=== PATIENT | male | born 1945 | race Hispanic/Latino ===

== ENCOUNTER 2017-07-16 09:03 | Inpatient (IN) | payer MEDICARE ==
[2017-07-16] MEDS ORDERED: Morphine 4 MG/ML VIAL ONE (09:44)
[2017-07-16] MEDS ORDERED: Ondansetron HCl/PF 4 MG/2 ML Vial ONE ×2 (09:44→10:40)
[2017-07-16] MEDS ORDERED: Pantoprazole 40 MG VIAL ONE (09:44)
[2017-07-16 10:07] LABS: Lactic Acid - Sepsis 3.4 mmol/L (0.5-2.2)
[2017-07-16 10:17] LABS: Troponin I 0.052 ng/mL (< 0.028)
[2017-07-16 10:18] LABS: #Basophils 0.1 thou/uL (0.0-0.2); #Monocytes 0.4 thou/uL (0.11-0.59); #Neutrophils 14.8 thou/uL (1.40-6.50); %Basophils 0.5 % (0.0-1.0); %Eosinophils 0.1 % (0.0-10.0); %Lymphocytes 6.1 % (21.0-51.0); %Monocytes 2.3 % (0.0-10.0); Hematocrit 60.4 % (42.0-52.0); Mean Platelet Volume 8.6 fL (7.4-10.4); Red Blood Cell (RBC) Count 7.27 mill/uL (4.70-6.10); White Blood Cell (WBC) Count 16.3 thou/uL (4.8-10.8)
[2017-07-16] MEDS ORDERED: Promethazine HCl 25 MG/ML VIAL ONE (11:29)
[2017-07-16 12:05] LABS: ALT (SGPT) 18 U/L (8-55); AST (SGOT) 18 U/L (5-34); Alkaline Phosphatase 147 U/L (40-150); Anion Gap 28 mmol/L (10-20); BUN (Urea Nitrogen) 25 mg/dL (8.4-25.7); Bilirubin, Total 1.1 mg/dL (0.2-1.2); Calc. Creatinine Clearance 0 mL/min (70-130); Calcium 10.4 mg/dL (7.8-10.44); Carbon Dioxide 19 mmol/L (23-31); Chloride 95 mmol/L (98-107); Estimated GFR-MDRD 58; Globulin 3.7 g/dL (2.4-3.5)
[2017-07-16] MEDS ORDERED: Insulin Regular 300 UNITS/3 ML VIAL ONE (12:59)
[2017-07-16] MEDS ORDERED: Meropenem 1 GM in Sodium Chloride 0.9% 100 ML IVPB SCH (13:15)
--- NOTE | 2017-07-16 13:53 | CT ---
CT ABDOMEN AND PELVIS WITH IV CONTRAST: Date: 07/16/17 HISTORY: Upper abdominal pain and coffeeground emesis. COMPARISON: None available. FINDINGS: There is partial visualization of cardiac pacemaking leads. Contrast seen in the distal esophagus which may be related to gastroesophageal reflux. Calcified granulomata are seen in the right infrahilar region with a tiny punctate pleural based calc ification at the right lung base with linear scarring versus atelectasis also present at the right onofre ng base. There are scattered subcentimeter, too small to characterize, hypodense lesions seen in the left kidn ey, with areas of what appear to be cortical scarring involving the left kidney. The right kidney has a normal CT appearance. The liver, spleen, pancreas, bilateral adrenal glands, urinary bladder, and opacified bowel demonstra te a normal CT appearance. The appendix is normal in caliber and filled with gas and contrast. Bilateral pars defects are seen at L5 with Grade II anterolisthesis of L5 on S1. There are degenerati ve changes seen in the lumbar spine. IMPRESSION: 1. No acute findings are seen in the abdomen or pelvis. 2. Dense atherosclerotic vascular calcifications. 3. Small amount of contrast in the distal esophagus suggesting gastroesophageal reflux. 4. Grade II spondylolisthesis lumbosacral junction. POS: [facility]
[2017-07-16 14:26] LABS: Bacteria/HPF None Seen HPF (None Seen); Hyaline Casts/LPF 0-3 HYALINE CAST LPF (0-3 Hyaline); Squamous Epithelial None Seen HPF (0-3); WBC/HPF 0-3 HPF (0-3)
[2017-07-16 14:27] LABS: Bilirubin Negative (Negative); Blood, Urine Small (Negative); Glucose, Urine (Dipstick) 500 mg/dL (Negative); Ketone, Urine 15 mg/dL (Negative); Nitrite Negative (Negative); Protein, Urine (Dipstick) 100 mg/dL (Neg-Trace); Urobilinogen 0.2 mg/dL (0.2-1.0)
[2017-07-16 14:53] LABS: Troponin I 0.072 ng/mL (< 0.028)
[2017-07-16] MEDS ORDERED: Ondansetron ODT 4 MG TAB SL PRN (15:31)
[2017-07-16] MEDS ORDERED: Ondansetron HCl/PF 4 MG/2 ML Vial IVP PRN (15:31)
[2017-07-16] MEDS ORDERED: Acetaminophen 325 MG TAB PO PRN ×2 (15:31→17:44)
[2017-07-16 15:48] VITALS: BMI 22.0
[2017-07-16] MEDS ORDERED: ISOVUE-370 76%-LOCM 1 ML ONE (16:46)
[2017-07-16] MEDS ORDERED: Iopamidol 370 76% 50 ML VIAL FS ONE (16:46)
[2017-07-16] MEDS ORDERED: Dextrose 5% in Water 1,000 ML IV PRN (16:47)
[2017-07-16] MEDS ORDERED: Dextrose 5 %-0.45 % NaCl 1,000 ML IV PRN (16:47)
[2017-07-16] MEDS ORDERED: Sodium Chloride 0.9% 1,000 ML IV PRN ×4 (16:47)
[2017-07-16] MEDS ORDERED: NS 0.9% w/ 20 MEQ KCL 1,000 ML/1,000 ML BAG IV PRN ×2 (16:47)
[2017-07-16] MEDS ORDERED: Potassium Chloride 40 MEQ in Sodium Chloride 0.9% 250 ML 250 ML IVPB PRN (16:48)
[2017-07-16] MEDS ORDERED: Potassium Phosphate 15 MMOL in Sodium Chloride 0.9% 250 ML 250 ML IV PRN (16:48)
[2017-07-16] MEDS ORDERED: Magnesium Oxide 400 MG TAB PO PRN ×2 (16:48)
[2017-07-16] MEDS ORDERED: Potassium Phosphate 12 MMOL in Sodium Chloride 0.9% 250 ML 250 ML IV PRN (16:48)
[2017-07-16] MEDS ORDERED: Potassium Phosphate 9 MMOL in Sodium Chloride 0.9% 100 ML IVPB PRN (16:48)
[2017-07-16] MEDS ORDERED: Magnesium 2 GM/NS 0.9% 100 ML 2 GM in Premix Bag 1 BAG IVPB PRN (16:48)
[2017-07-16] MEDS ORDERED: Potassium Chloride 20 MEQ TAB PO PRN (16:48)
[2017-07-16] MEDS ORDERED: Potassium Chloride 40 MEQ in Premix Bag 1 BAG IVPB PRN (16:48)
[2017-07-16 17:40] LABS: Magnesium 1.8 mg/dL (1.6-2.6); Phosphorus 3.8 mg/dL (2.3-4.7)
[2017-07-16 17:41] LABS: Anion Gap 17 mmol/L (10-20); BUN (Urea Nitrogen) 23 mg/dL (8.4-25.7); Calc. Creatinine Clearance 54 mL/min (70-130); Carbon Dioxide 25 mmol/L (23-31); Chloride 101 mmol/L (98-107); Estimated GFR-MDRD 73
--- NOTE | 2017-07-16 17:42 | CON ---
DATE OF CONSULTATION: 07/16/2017 GI INPATIENT CONSULTATION NOTE REASON FOR CONSULTATION: Possible hematemesis. HISTORY OF PRESENT ILLNESS: Jama Sahu is a 71-year-old man who speaks Urdu only, but I am as sisted by his family who acts as interpreters tonight. He was just admitted to the hospital with lisandra betic ketoacidosis and concern for possible hematemesis. He does not have any chronic gastrointestin al symptoms. It is unclear, but he believes he has had an upper endoscopy in the past before, but I cannot find a record of that in the [place] system or in my practice's system. At any rate, start ing about 11:00 p.m. last night, he started having abdominal pain in the epigastrium and left upper q uadrant. This progressed to nausea and multiple episodes of vomiting. They described his emesis as dark brown or black. There has been no lauren hematemesis. He had several episodes prior to arrival and after arrival notably this was witnessed in the ER and did appear to have coffee ground appearanc e. He had a bowel movement witnessed in the ER as well, and this appeared normal in brown with actua lly heme negative. Labs are consistent with dehydration and diabetic ketoacidosis with hemoglobin ac tually 18.9 likely reflecting hemoconcentration and an anion gap of 28. He is being started on a DKA protocol as well as IV PPI. He has had no further emesis since arrival to the floor. His abdominal pain has improved somewhat since arrival as well. PAST MEDICAL HISTORY: Diabetes, unspecified arrhythmia, status post pacemaker placement. REVIEW OF SYSTEMS: Full review of systems including constitutional, head, eyes, ears, nose, throat, GI, , cardiovascular, respiratory, musculoskeletal, and neurologic systems is negative except as no avni in the HPI. ALLERGIES: No known drug allergies. OUTPATIENT MEDICATIONS: Famotidine 20 mg daily, tramadol, lisinopril, metformin, Coreg, gabapentin. FAMILY HISTORY: Negative for GI malignancies. SOCIAL HISTORY: No smoking, alcohol, or drug use. He has good family support here. PHYSICAL EXAMINATION: VITAL SIGNS: Temperature 98.8, pulse 84, blood pressure 175/76, 100% oxygen saturation on room air. GENERAL: A 71-year-old man lying in bed comfortably in no acute distress. SKIN: No jaundice, no rashes were palpable. EYES: No scleral icterus. Extraocular movements intact. ENT: Mucous membranes moist, no oral lesions. LYMPH: No submandibular, supraclavicular lymphadenopathy. THYROID: Nontender to palpation. HEART: Regular rate and rhythm. LUNGS: Clear to auscultation bilaterally. ABDOMEN: Bowel sounds present. Soft, mild tenderness to palpation in the left upper quadrant, but n o guarding or rebound tenderness. EXTREMITIES: No peripheral edema. VESSELS: Radial pulses 2+ bilaterally. NEUROLOGICAL: Cranial nerves II-XII intact bilaterally. No focal deficits. LABORATORY STUDIES: WBC 16.3, hemoglobin 18.9, platelets 508. Sodium 138, potassium 3.9, chloride 9 5, bicarbonate 19 with CO2 and anion gap of 28, BUN is 25, creatinine 1.23, glucose 556, troponin 0.0 7. Lipase is only 13. LFTs normal with total bilirubin 1.1, alkaline phosphatase 147, AST 18, ALT 1 8, albumin 4.3. IMAGING STUDIES: A CT of the abdomen and pelvis was performed in the emergency department earlier to day. This demonstrates no acute findings. The liver, spleen, pancreas, and bowel all appeared chari l. There are dense atherosclerotic vascular calcifications and suggestion of esophageal reflux. ASSESSMENT AND PLAN: 1. Possible coffee ground emesis. 2. Left upper quadrant abdominal pain, improving. 3. Diabetic ketoacidosis. I think, it is likely the patient's symptoms are primarily attributable t o his diabetic ketoacidosis. I wonder if he might have had a Fransisca-Gillis tear at any rate, he is h emodynamically stable. Hemoglobin 18.9 expect this reflects some hemoconcentration, so I would expec t this to decline a little bit. I do think it would be worthwhile to perform EGD tomorrow morning to rule out upper GI mucosal lesion such as peptic ulcer disease or Fransisca-Gillis tear Otherwise, nick nue with supportive care and treatment of diabetic ketoacidosis. Further recommendations following E GD tomorrow morning. Thank you for the consultation. Please call back at any time with questions or concerns.
[2017-07-16 17:45] LABS: Troponin I 0.106 ng/mL (< 0.028)
[2017-07-16] MEDS ORDERED: Acetaminophen 650 MG Suppository PR PRN (17:47)
--- NOTE | 2017-07-16 19:05 | HP ---
CHIEF COMPLAINT: Diabetic ketoacidosis. HISTORY OF PRESENT ILLNESS: The patient is a 71-year-old Latin-[place] African male who at 11:00 p.m. prior to the date of admission began to have protracted nausea and vomiting. The patient thinks at some p oint, he may have thrown up some blood. The family describes coffee ground emesis as well. This con tinued through the evening and morning he went to the emergency room where it persisted. Hemoccultin g that fluid did return negative at that time. He has some chest discomfort during that time. He de nies any fever. He does have a history of GERD. The pain is mainly left upper quadrant associated w ith nausea. There was not anything that patient could do to relieve his discomfort, that is why he c alan to the emergency room for further evaluation. PAST MEDICAL HISTORY: Significant for diabetes, coronary artery disease with arrhythmias and pacemak er placement, GERD, hypertension, anxiety disorder and osteoarthritis. PAST SURGICAL HISTORY: Includes the aforementioned pacemaker placement, unsure date. He has also angeles d bilateral carpal tunnel surgery in 2016. PSYCHIATRIC HISTORY: No previous psychiatric history. SOCIAL HISTORY: He is . Does not smoke, use drugs or drink alcohol. ALLERGIES: He has no known drug allergies. MEDICATIONS: At the time of admission include famotidine 20 mg q. day; tramadol 50 mg p.r.n. pain, t his is due to osteoarthritis; Lisinopril 20 mg q. day; metformin 1000 mg b.i.d.; gabapentin 800 mg t. i.d. and carvedilol 12.5 mg b.i.d. REVIEW OF SYSTEMS: At the time of admission, General: He denies chills, fever constitutionally. HE ENT: Denies blurred vision, eye redness or discharge. Denies sores, lesions or throat. Neck: Chava es painful range of motion or mass. Cardiovascular: Denies diaphoresis, dyspnea, chest pain or palp itations. Respiratory: Denies dyspnea or cough. Gastrointestinal: Significant for the abdominal l eft upper quadrant pain along with persistent vomiting. Genitourinary: Denies painful urination or blood in urine. Skin: Denies rashes or lesions. Neurologically: Denies trouble with mentation or areas of anesthesia. Psychiatrically: Denies any hallucinations or delusions. Skin: Denies any ne w rashes or lesions. Musculoskeletal: Denies any painful range of motion, swelling of any joints. Lymphatics: Denies any areas of edema. PHYSICAL EXAMINATION: VITAL SIGNS: On admission, blood pressure 149/96, pulse 99, respirations 20, temperature 98.6. Pain scale 5/10, O2 sat 97% on room air. GENERAL: This is an elderly male, arousable, responsive and appropriate. HEENT: Normocephalic and atraumatic. Pupils are equal, round and reactive to light with arcus senil is bilaterally. TMs, nares clear. Pharynx is dry. NECK: Supple, trachea midline. No mass. CHEST: Clear to auscultation. HEART: Regular rate and rhythm. ABDOMEN: Soft, tender left upper quadrant. No organomegaly. /BREAST: Deferred. EXTREMITIES: Without clubbing, cyanosis or edema. Normal range of motion present. Symmetrical musc ular tone development noted. Diminished most muscle tone generally in the extremities. SKIN: With poor turgor, but no acute rash. NEUROLOGICALLY: Cranial nerves are intact. Unable to test gait and cerebellar function at this time . Sensory exam is normal. LABORATORY DATA: The lab work from admission shows WBCs at 16.3, hemoglobin 18.9, hematocrit 60.4 an d platelets at 508. The sugar on admission was 556, sodium 138, potassium 3.9, chloride 95, CO2 of 1 9, anion gap 28, BUN 25, creatinine 1.23, lactic acid 3.4. CK-MB elevated at 10.1 with troponin slig htly elevated at 0.05. Lipase 13. Liver functions normal. Urinalysis shows ketones, protein and gl ucose. ASSESSMENT: 1. Diabetic ketoacidosis. 2. Possible viral gastroenteritis. 3. Possible gastrointestinal bleed. 4. Hypertension. 5. Dehydration. PLAN: 1. Diabetic ketoacidosis protocol with significant need for rehydration. 2. GI consultation with probable endoscopy. 3. Pain control and serial reevaluation.
--- NOTE | 2017-07-16 19:39 | RAD ---
CHEST ONE VIEW: History: Dyspnea. Comparison: 11-05-03 FINDINGS: Cardiac silhouette is magnified by projection. Pulmonary vasculature is unremarkable. Mediastinum is midline with aortic calcification and a dual-lead left subclavian cardiac electronic device. There is no lobar consolidation or evidence of pneumothorax. quality assurance monitor body leads overlie the chest. IMPRESSION: No active cardiopulmonary abnormalities are demonstrated. POS: [facility]
[2017-07-16] MEDS ORDERED: FLU VACC TS2017-18 (>65YR) 0.5 ML SYRINGE IM ONE (21:00)
[2017-07-16] MEDS: Pantoprazole 40 MG VIAL IVP SCH (21:05)
[2017-07-16] MEDS: Carvedilol 6.25 MG TAB PO SCH (21:05)
[2017-07-16] MEDS: Lisinopril 20 MG TAB PO SCH (21:06)
[2017-07-16 21:29] LABS: Anion Gap 12 mmol/L (10-20); BUN (Urea Nitrogen) 21 mg/dL (8.4-25.7); Calc. Creatinine Clearance 59 mL/min (70-130); Calcium 8.2 mg/dL (7.8-10.44); Carbon Dioxide 25 mmol/L (23-31); Chloride 108 mmol/L (98-107); Estimated GFR-MDRD 81
[2017-07-16] MEDS: D5 1/2 NS w/20 mEq KCL 1,000 ML IV PRN (22:30)
[2017-07-17] MEDS: D5 1/2 NS w/20 mEq KCL 1,000 ML IV PRN ×2 (02:48→06:22)
[2017-07-17 05:20] LABS: #Basophils 0.1 thou/uL (0.0-0.2); #Eosinphils 0.1 thou/uL (0.0-0.7); #Neutrophils 14.5 thou/uL (1.40-6.50); %Basophils 0.7 % (0.0-1.0); %Eosinophils 0.3 % (0.0-10.0); %Lymphocytes 11.5 % (21.0-51.0); %Monocytes 5.4 % (0.0-10.0); Hematocrit 51.3 % (42.0-52.0); Mean Platelet Volume 7.7 fL (7.4-10.4); Red Blood Cell (RBC) Count 6.11 mill/uL (4.70-6.10); White Blood Cell (WBC) Count 17.6 thou/uL (4.8-10.8)
[2017-07-17 05:33] LABS: Hemoglobin A1c 13.7 % (4.0-6.0)
[2017-07-17 05:45] LABS: Anion Gap 10 mmol/L (10-20); BUN (Urea Nitrogen) 20 mg/dL (8.4-25.7); Calc. Creatinine Clearance 67 mL/min (70-130); Calcium 7.8 mg/dL (7.8-10.44); Carbon Dioxide 23 mmol/L (23-31); Chloride 108 mmol/L (98-107); Estimated GFR-MDRD Greater than 90
[2017-07-17] MEDS: Carvedilol 6.25 MG TAB PO SCH ×2 (07:59→21:11)
[2017-07-17] MEDS ORDERED: Ondansetron HCl/PF 4 MG/2 ML Vial IVP PRN (10:10)
[2017-07-17] MEDS ORDERED: Diprivan 20 ML ONE (10:31)
--- NOTE | 2017-07-17 10:50 | OP ---
DATE OF PROCEDURE: 07/17/2017 GI ENDOSCOPY NOTE SURGEON: Armando Mckinnon M.D. LOADER SURGEON: None. PROCEDURE: Esophagogastroduodenoscopy, diagnostic. INDICATIONS: 1. Possible hematemesis. 2. Left upper quadrant pain in the context of diabetic ketoacidosis. MEDICATIONS: See anesthesia record. FINDINGS: After discussion of the risks, benefits and alternatives of the procedure, informed consen t was obtained and witnessed. Pre-endoscopic cardiopulmonary examination was satisfactory. Timeout was performed before sedation was achieved. Sedation was achieved with anesthesia assistance in the endoscopy unit. The patient was placed in the left lateral decubitus position. A Pentax adult upper endoscope was placed into the oropharynx and passed through the cricopharyngeus under direct visuali zation. The majority of the esophageal mucosa appeared normal. At the GE junction, there is a singl e linear erosion which is clean based. This appears to represent a healing Fransisca-Gillis tear. The endoscope was advanced forward into the stomach. Forward and retroflexed views of the entire gastric mucosa were obtained. The gastric mucosa appeared normal throughout. The endoscope was passed thro ugh a normal appearing pylorus and into the first and second portions of the duodenum, which also sonia eared normal. The upper endoscope was then completely withdrawn and the patient allowed to recover. The patient tolerated the procedure well. There were no immediate post-procedure complications. IMPRESSION: 1. Single linear clean based erosion at the GE junction, likely representing a healing Fransisca-Gillis tear. 2. Otherwise, normal esophagogastroduodenoscopy. RECOMMENDATIONS: 1. Daily proton pump inhibitor for 1 month. 2. Advance diet as tolerated. Gastrointestinal will sign off. Please call back if needed.
[2017-07-17] MEDS ORDERED: Insulin Regular 300 UNITS/3 ML VIAL SC PRN (12:09)
[2017-07-17] MEDS ORDERED: metFORMIN 500 MG TAB PO SCH (12:15)
[2017-07-17] MEDS ORDERED: Losartan Potassium 25 MG TAB PO SCH (12:15)
[2017-07-17] MEDS: Lisinopril 20 MG TAB PO SCH (12:22)
[2017-07-17] MEDS ORDERED: Ondansetron HCl/PF 4 MG/2 ML Vial ONE (13:49)
[2017-07-17] MEDS ORDERED: Metoclopramide HCl 10 MG/2 ML VIAL ONE (13:49)
[2017-07-17] MEDS ORDERED: Propofol 200 MG/20 ML VIAL ONE (13:49)
[2017-07-17] MEDS: cloNIDine 0.1 MG TAB PO PRN ×2 (14:28→22:35)
[2017-07-17] MEDS: Fentanyl 100 MCG/2 ML VIAL SLOW IVP PRN (15:03)
[2017-07-17] MEDS: Enalaprilat Dihydrate 1.25 MG/ML VIAL SLOW IVP PRN (16:01)
[2017-07-17] MEDS: Insulin Regular 300 UNITS/3 ML VIAL SC PRN (17:16)
[2017-07-17] MEDS ORDERED: Lidocaine 2% Viscous Solution 20 ML, Aluminum & Magnesium Hydroxide 30 ML, Donnatal Eli... SSW SCH ×3 (17:30)
[2017-07-17] MEDS ORDERED: Carvedilol 6.25 MG TAB PO SCH (21:00)
[2017-07-17] MEDS: Pantoprazole 40 MG VIAL IVP SCH ×2 (21:10→22:42)
[2017-07-18 06:04] LABS: #Basophils 0.1 thou/uL (0.0-0.2); #Lymphocytes 2.1 thou/uL (1.20-3.40); #Monocytes 0.8 thou/uL (0.11-0.59); #Neutrophils 12.7 thou/uL (1.40-6.50); %Basophils 0.5 % (0.0-1.0); %Eosinophils 0.2 % (0.0-10.0); %Lymphocytes 13.3 % (21.0-51.0); %Monocytes 5.2 % (0.0-10.0); Hematocrit 48.9 % (42.0-52.0); Mean Platelet Volume 7.5 fL (7.4-10.4); Red Blood Cell (RBC) Count 5.89 mill/uL (4.70-6.10); White Blood Cell (WBC) Count 15.7 thou/uL (4.8-10.8)
[2017-07-18 06:24] LABS: Anion Gap 9 mmol/L (10-20); BUN (Urea Nitrogen) 13 mg/dL (8.4-25.7); Calc. Creatinine Clearance 71 mL/min (70-130); Calcium 7.6 mg/dL (7.8-10.44); Carbon Dioxide 24 mmol/L (23-31); Chloride 102 mmol/L (98-107); Estimated GFR-MDRD Greater than 90
[2017-07-18] MEDS: Carvedilol 6.25 MG TAB PO SCH (08:45)
[2017-07-18] MEDS: metFORMIN 500 MG TAB PO SCH (08:45)
[2017-07-18] MEDS ORDERED: Losartan Potassium 25 MG TAB PO SCH (09:00)
[2017-07-18] MEDS: Insulin Detemir 100 UNITS/ML 30 UNITS in Pre-Filled Syringe 1 EACH SC SCH (11:01)
[2017-07-18] MEDS: Carvedilol 25 MG TAB PO SCH ×2 (11:02→21:19)
[2017-07-18] MEDS: Ondansetron HCl/PF 4 MG/2 ML Vial IVP PRN (15:15)
[2017-07-18] MEDS: Fentanyl 100 MCG/2 ML VIAL SLOW IVP PRN (15:22)
[2017-07-18] MEDS: Enalaprilat Dihydrate 1.25 MG/ML VIAL SLOW IVP PRN (16:01)
[2017-07-18] MEDS: cloNIDine 0.1 MG TAB PO PRN (17:01)
[2017-07-18] MEDS ORDERED: Milk Of Magnesia 30 ML UDCUP PO PRN (18:32)
[2017-07-18] MEDS ORDERED: cloNIDine 0.2 MG TAB PO SCH (18:45)
[2017-07-18] MEDS: Dextrose 50% Abboject 50 ML SYRINGE SLOW IVP PRN (21:05)
[2017-07-18] MEDS: Pantoprazole 40 MG VIAL IVP SCH (21:20)
[2017-07-18] MEDS ORDERED: Sodium Chloride 0.9% 1,000 ML IV SCH (22:00)
--- NOTE | 2017-07-18 23:24 | CT ---
CT HEAD NONCONTRAST 07/18/17 HISTORY: Altered mental status. FINDINGS: No comparison. There is no evidence of acute intracranial hemorrhage or infarct. The ventricle appear normal in size , shape and position. There is no mass effect or shift of midline structures. The visualized paranasa l sinuses remain well aerated. IMPRESSION: No acute intracranial abnormalities are demonstrated on noncontrast CT head. POS: [facility]
[2017-07-19] MEDS: Dextrose 50% Abboject 50 ML SYRINGE SLOW IVP PRN ×2 (00:26→02:36)
[2017-07-19] MEDS ORDERED: Enalaprilat Dihydrate 1.25 MG/ML VIAL SLOW IVP PRN (01:04)
[2017-07-19] MEDS: Sodium Chloride 0.9% 1,000 ML IV SCH ×2 (01:15→03:27)
[2017-07-19] MEDS: Dextrose 5 % And 0.9 % NaCl 1,000 ML IV SCH ×2 (03:27→16:34)
[2017-07-19 04:45] LABS: #Eosinphils 0.1 thou/uL (0.0-0.7); #Lymphocytes 1.8 thou/uL (1.20-3.40); #Monocytes 1.1 thou/uL (0.11-0.59); #Neutrophils 10.9 thou/uL (1.40-6.50); %Basophils 0.3 % (0.0-1.0); %Eosinophils 0.5 % (0.0-10.0); %Lymphocytes 13.1 % (21.0-51.0); %Monocytes 7.6 % (0.0-10.0); Hematocrit 52.8 % (42.0-52.0); Mean Platelet Volume 7.5 fL (7.4-10.4); Red Blood Cell (RBC) Count 6.33 mill/uL (4.70-6.10); White Blood Cell (WBC) Count 13.8 thou/uL (4.8-10.8)
[2017-07-19 05:18] LABS: Anion Gap 10 mmol/L (10-20); BUN (Urea Nitrogen) 14 mg/dL (8.4-25.7); Calc. Creatinine Clearance 76 mL/min (70-130); Calcium 7.8 mg/dL (7.8-10.44); Carbon Dioxide 22 mmol/L (23-31); Chloride 103 mmol/L (98-107); Estimated GFR-MDRD Greater than 90
[2017-07-19] MEDS: metFORMIN 500 MG TAB PO SCH ×2 (08:18→09:36)
[2017-07-19] MEDS: Insulin Detemir 100 UNITS/ML 30 UNITS in Pre-Filled Syringe 1 EACH SC SCH (09:28)
[2017-07-19] MEDS ORDERED: Potassium Chloride 20 MEQ TAB PO SCH (11:00)
[2017-07-19] MEDS ORDERED: Carvedilol 6.25 MG TAB PO SCH ×2 (11:00→21:00)
--- NOTE | 2017-07-19 12:20 | PRG ---
DATE OF SERVICE: 07/19/2017 SUBJECTIVE: The patient had a rough night last night. His blood pressure was well over the place of 200 and also his blood sugar was high as well. He did have altered level of consciousness. Therefo re, I ordered a stat CT of the head. This was unremarkable; however, due to the high continuity of c are, I did want to transfer him to [facility]. Here, he is now with it. He is awake. His family is at be dside. His blood pressures in the 130s. His blood sugars still over the place. The patient seems t o be more hemodynamically stable. PHYSICAL EXAMINATION: GENERAL: He is awake. He is alert. VITAL SIGNS: Stable. NECK: Supple with no increased JVP or carotid bruit. Carotid had good upstroke with no thyromegaly. COR: Regular rate and rhythm. CHEST: Symmetrical. Clear to auscultation and percussion. ABDOMEN: Soft, nontender with normoactive bowel sounds. No bruit or organomegaly. EXTREMITIES: No edema or cyanosis. Palpable pedal pulses. SKIN: There is no evidence of ulcer lesion, or rash. NEUROLOGIC: He is awake, alert, and oriented to person, place, and time. ASSESSMENT: 1. Diabetic ketoacidosis. 2. Labile blood pressure. 3. Abdominal pain, improved, could be from diabetic ketoacidosis, all studies have been normal. 4. Hypokalemia. PLAN: 1. We will follow up with a CMP in the morning. 2. Replace potassium. 3. We will change his insulin 25 units q.a.m. 4. We will start back the Coreg 6.125 mg b.i.d. 5. We will keep him in [facility] secondary to medication adjustments and labile blood pressure and brittl e diabetes right now. The patient and family verbalized understanding and all questions answered to satisfaction.
[2017-07-19] MEDS: Pantoprazole 40 MG VIAL IVP SCH (20:46)
[2017-07-20] MEDS: Sodium Chloride 0.9% 1,000 ML IV SCH ×3 (01:37→21:45)
[2017-07-20] MEDS ORDERED: Insulin Detemir 100 UNITS/ML 10 UNITS in Pre-Filled Syringe 1 EACH SC SCH (05:30)
[2017-07-20] MEDS: metFORMIN 500 MG TAB PO SCH ×2 (07:26→16:32)
[2017-07-20] MEDS: Carvedilol 25 MG TAB PO SCH ×2 (07:26→21:50)
[2017-07-20] MEDS ORDERED: Insulin Detemir 100 UNITS/ML 25 UNITS in Pre-Filled Syringe 1 EACH SC SCH (09:00)
[2017-07-20] MEDS: Insulin Regular 300 UNITS/3 ML VIAL SC PRN (12:10)
[2017-07-20] MEDS ORDERED: Donepezil HCl 5 MG TAB PO SCH (16:15)
[2017-07-20] MEDS: cloNIDine 0.1 MG TAB PO PRN (16:30)
[2017-07-20] MEDS: Pantoprazole 40 MG VIAL IVP SCH (21:48)
--- NOTE | 2017-07-21 01:43 | CON ---
DATE OF CONSULT: 07/20/2017 HISTORY OF PRESENT ILLNESS: Mr. Sahu is a 71-year-old male. He was admitted several days ago wi th possible hematemesis. He is also hyperglycemic. He subsequently was transferred back to intermediate care unit, I am told, for hypoglycemia. He has no complaints. He says he feels better. PAST MEDICAL HISTORY: Remarkable for; 1. Diabetes, type 2. 2. History of coronary artery disease. 3. History of pacemaker. 4. History of hypertension. 5. History of degenerative arthritis. 6. History of carpal tunnel surgery. SOCIAL HISTORY: He is a nonsmoker and nondrinker. ALLERGIES: No drug allergies. MEDICATIONS: Prior to admission he is on Pepcid, tramadol, lisinopril, metformin, gabapentin and Cor eg. PHYSICAL EXAMINATION: GENERAL: He is flat in bed, in no distress. VITAL SIGNS: His blood pressure today was 200/84, this morning it is 169/68, now he is afebrile. H eart rate 69, respiratory rate 16, oximetry is 100%. HEENT: Pupils react. Sclerae is anicteric. NECK: Supple. LUNGS: Clear. CARDIOVASCULAR: Regular rhythm. S1 and S2 are normal. ABDOMEN: Soft and nontender. EXTREMITIES: Without asymmetry. IMAGING DATA: Head CT showed no abnormalities. LABORATORY DATA: White count 13.8. Hemoglobin 16.3, it was 18.9 on admission. Hematocrit 52, it wa s 60 on admission. Platelets 434, it was 508,000 on admission. Sodium on admission was 138, potassi um 3.9, chloride 95, bicarbonate 19, BUN 25 and creatinine 1.23. Anion gap is 24 on presentation, gl ucose 56. Lactate level was elevated. Globulin was elevated at 3.7, 100 mg/deciliter protein in his urine, beta hydroxybutyrate was elevated. IMPRESSION AND PLAN: Hyperosmolar state with severe intravascular volume depletion on admission, cre ating a metabolic acidosis. I doubt this was true diabetic ketoacidosis. Starvation ketones can amelie e beta hydroxybutyrate go up. I will continue his management. I will be cautious about aggressive i nsulin therapy in this elderly frail gentleman. Hemoglobin A1c was 13.7, so obviously what he was using before was not adequate, but I would move for sosa slowly with insulin adjustments in this elderly gentleman. He is stable to move out of the [facility] Care Unit/Intermediate Care Unit environment in my opinion.
[2017-07-21 04:25] LABS: #Basophils 0.1 thou/uL (0.0-0.2); #Eosinphils 0.5 thou/uL (0.0-0.7); #Lymphocytes 2.5 thou/uL (1.20-3.40); #Monocytes 0.7 thou/uL (0.11-0.59); #Neutrophils 6.5 thou/uL (1.40-6.50); %Basophils 0.8 % (0.0-1.0); %Eosinophils 4.5 % (0.0-10.0); %Monocytes 7.3 % (0.0-10.0); Hematocrit 51.5 % (42.0-52.0); Mean Platelet Volume 7.4 fL (7.4-10.4); Red Blood Cell (RBC) Count 6.29 mill/uL (4.70-6.10); White Blood Cell (WBC) Count 10.2 thou/uL (4.8-10.8)
[2017-07-21 04:31] LABS: Anion Gap 8 mmol/L (10-20); BUN (Urea Nitrogen) 8 mg/dL (8.4-25.7); Calc. Creatinine Clearance 91 mL/min (70-130); Calcium 7.6 mg/dL (7.8-10.44); Carbon Dioxide 21 mmol/L (23-31); Chloride 105 mmol/L (98-107); Estimated GFR-MDRD Greater than 90
[2017-07-21] MEDS: Sodium Chloride 0.9% 1,000 ML IV SCH (08:35)
[2017-07-21] MEDS: Carvedilol 25 MG TAB PO SCH ×2 (08:36→20:49)
[2017-07-21] MEDS: metFORMIN 500 MG TAB PO SCH ×2 (08:36→16:04)
[2017-07-21] MEDS: Donepezil HCl 5 MG TAB PO SCH (08:37)
[2017-07-21] MEDS: Insulin Regular 300 UNITS/3 ML VIAL SC PRN ×3 (08:37→16:05)
[2017-07-21] MEDS: Insulin Detemir 100 UNITS/ML 10 UNITS in Pre-Filled Syringe 1 EACH SC SCH (08:37)
--- NOTE | 2017-07-21 13:05 | PRG ---
DATE OF SERVICE: 07/21/2017 SERVICE: Pulmonary Medicine INTERVAL HISTORY: The patient is doing fine from a respiratory standpoint. He denies any current fe vers, chills, nausea or vomiting. Otherwise, he is returning to his usual state of health. He is of f of his insulin drip. His metabolic derangements have improved dramatically. PHYSICAL EXAMINATION: VITAL SIGNS: Afebrile, pulse 69, blood pressure 154/71, respirations 22, saturation 98% on room air. GENERAL: The patient is awake and alert, in no apparent distress. LUNGS: Excellent air entry. No prolonged expiratory phase, wheezing, rhonchi or crackles. HEART: Normal rate, regular. ABDOMEN: Soft, nontender, nondistended. Bowel sounds positive. MUSCULOSKELETAL: No cyanosis or clubbing. No pitting in the bilateral lower extremities. NEUROLOGIC: Grossly nonfocal. LABORATORY DATA: WBC 10.2, hemoglobin 16.4, platelets 347,000. Sodium 131 and gently down trending. Potassium 3.3. Basic metabolic profile is otherwise unremarkable with a normal creatinine of 0.61. Calcium 7.6. Urinalysis is essentially unremarkable. Beta hydroxybutyrate acid was previously mar ginally elevated. Blood cultures x2 and urine culture are negative. Fecal occult blood was negative . IMAGING: CT of the brain demonstrates no acute intracranial abnormality. ASSESSMENT: 1. Type 2 diabetes mellitus. 2. Dehydration. PLAN: We will replace the potassium and calcium. We will minimize his free water given his sodium l evels. Pulmonary will continue to follow while the patient remains in house for the time being, but from my perspective, he is stable for transition to the medical unit.
[2017-07-21] MEDS: Potassium Chloride 20 MEQ TAB PO SCH ×2 (14:16→16:05)
--- NOTE | 2017-07-21 15:34 | PRG ---
DATE OF SERVICE: 07/21/2017 The patient is awake. There is no family here at bedside. He does not speak Kinyarwanda. According to the staff he did have some urinary retention. Therefore, a Estrada had to be reinserted. His blood jeffries gars have been much better. Also, his blood pressure has been much better, today it was 154/70. I d id speak with his sister who is a emergency medical technician/driver in our office about him having dementia. I was h oping to speak with the family today in the room; however, they are not here. PHYSICAL EXAMINATION: GENERAL: He is awake. An alert status could not be evaluated secondary to no Slovenian speaking nurse present. VITAL SIGNS: Stable. NECK: Supple with no increased JVP or carotid bruit. Carotid had good upstroke with no thyromegaly. COR: Regular rate and rhythm. CHEST: Symmetrical. Clear to auscultation and percussion. ABDOMEN: Soft, nontender with normoactive bowel sounds. No bruit or organomegaly. EXTREMITIES: No edema or cyanosis. He had palpable pedal pulses. SKIN: There is no evidence of ulcer lesion, or rash. NEUROLOGIC: He is awake. ASSESSMENT: 1. Hypertension. 2. Diabetes. 3. Dementia. 4. Urinary retention. PLAN: 1. We will start Flomax 0.4 mg at bedtime. 2. We will discontinue Estrada in the morning. 3. Okay for medical. 4. Hopefully, will go home tomorrow morning.
[2017-07-21] MEDS: cloNIDine 0.1 MG TAB PO PRN (16:05)
[2017-07-21] MEDS: Pantoprazole 40 MG VIAL IVP SCH (20:48)
[2017-07-21] MEDS: Tamsulosin HCl 0.4 MG CAP PO SCH (20:49)
[2017-07-22] MEDS: Ondansetron HCl/PF 4 MG/2 ML Vial IVP PRN (07:31)
[2017-07-22] MEDS ORDERED: Terazosin HCl 5 MG CAP PO SCH (08:00)
[2017-07-22] MEDS: Carvedilol 25 MG TAB PO SCH ×2 (08:14→20:57)
[2017-07-22] MEDS: Donepezil HCl 5 MG TAB PO SCH (08:15)
[2017-07-22] MEDS: metFORMIN 500 MG TAB PO SCH ×2 (08:15→16:46)
[2017-07-22] MEDS: Insulin Detemir 100 UNITS/ML 10 UNITS in Pre-Filled Syringe 1 EACH SC SCH (08:19)
[2017-07-22] MEDS: Insulin Regular 300 UNITS/3 ML VIAL SC PRN ×2 (12:28→16:46)
--- NOTE | 2017-07-22 14:24 | PRG ---
DATE OF SERVICE: 07/22/2017 SERVICE: Pulmonary Medicine. INTERVAL HISTORY: The patient is doing great. He denies any current shortness of breath or chest di scomfort. Otherwise, he has returned to his usual state of health. His strength is even improving. PHYSICAL EXAMINATION: VITAL SIGNS: Afebrile, pulse 69, blood pressure 157/72, respirations 20, saturation 97% on room air. GENERAL: Patient is awake and alert, in no apparent distress. LUNGS: Excellent air entry with no prolonged expiratory phase. HEART: Normal rate, regular. ABDOMEN: Soft, nontender, nondistended, bowel sounds positive. MUSCULOSKELETAL: No cyanosis or clubbing. No pitting in the bilateral lower extremities. NEUROLOGIC: Grossly nonfocal. LABORATORY DATA: WBC 10.2, hemoglobin 16.4, platelets 347,000. Blood sugars ranged from 135 to 211. Urinalysis is essentially unremarkable. Microbiology includes negative blood cultures x2 and urine culture. ASSESSMENT: 1. Type 2 diabetes mellitus. 2. Dehydration. PLAN: We will continue replacing electrolytes as needed. At this point, the patient has no further requirements for Pulmonary or Critical Care opinion. As such, I will sign off. Please call with add itional questions or concerns moving forward.
[2017-07-22] MEDS ORDERED: cycloSPORINE 0.05% Ophthalmic Droperette EA EYE PRN (17:31)
[2017-07-22] MEDS ORDERED: Artificial Tears 18 DROP/0.9 ML EA EYE PRN (18:32)
[2017-07-22] MEDS: Pantoprazole 40 MG VIAL IVP SCH (20:57)
[2017-07-22] MEDS: Tamsulosin HCl 0.4 MG CAP PO SCH (20:57)
[2017-07-23 04:50] LABS: Anion Gap 6 mmol/L (10-20); BUN (Urea Nitrogen) 10 mg/dL (8.4-25.7); Calc. Creatinine Clearance 70 mL/min (70-130); Calcium 8.2 mg/dL (7.8-10.44); Carbon Dioxide 32 mmol/L (23-31); Chloride 100 mmol/L (98-107); Estimated GFR-MDRD Greater than 90; Magnesium 1.4 mg/dL (1.6-2.6); Phosphorus 2.8 mg/dL (2.3-4.7)
[2017-07-23] MEDS: Donepezil HCl 5 MG TAB PO SCH (07:56)
[2017-07-23] MEDS: Carvedilol 25 MG TAB PO SCH (07:56)
[2017-07-23] MEDS: metFORMIN 500 MG TAB PO SCH ×2 (07:56→16:39)
[2017-07-23] MEDS: Insulin Detemir 100 UNITS/ML 10 UNITS in Pre-Filled Syringe 1 EACH SC SCH (08:03)
[2017-07-23] MEDS: Insulin Regular 300 UNITS/3 ML VIAL SC PRN (11:58)
[2017-07-23] MEDS: cloNIDine 0.1 MG TAB PO PRN (12:03)
[2017-07-23] MEDS ORDERED: Carvedilol 6.25 MG TAB PO SCH (13:45)
[2017-07-23 15:21] VITALS: BP 147/74; TEMP 97.1
[2017-07-23] MEDS ORDERED: Terazosin HCl 5 MG CAP PO SCH (21:00)
--- NOTE | 2017-07-24 01:10 | DIS-2 ---
FINAL DIAGNOSES: 1. Diabetes. 2. Hypertension. 3. Dementia. 4. Gastroenteritis. 5. Dehydration. 6. Urinary retention. COMPLICATIONS: None. PROCEDURES: On 07/16/2017, patient underwent an EGD. CONSULTANTS: Dr. Mckinnon and Dr. Reyes. HOSPITAL COURSE: This is a pleasant gentleman with history of multiple medical problems, who present s to the hospital with protracted nausea and vomiting. He also had some abdominal pain. He would re present to the hospital where white blood cells 16.3, H&H 18.9 and 60.4, platelets 508, sugar on admi ssion was 556. Sodium 138, potassium 3.9, creatinine 1.23, BUN 25, lipase 13. Liver functions chari l. The patient was given IV fluids for hydration, GI to see the patient in consultation. He did und ergo the procedure as enumerated above and was found to have single linear clean based erosion of the GE junction, likely representing a healing Fransisca-Gillis tear. The patient did have a bout of confu shana where CT of the head was obtained, which was negative. Unfortunately, his blood pressure remain ed high and his blood sugar remained labile and he have to be transferred to IMCU there. Dr. Reyes w as asked to see the patient in consultation. The patient eventually had to be started on Aricept. H e also had urinary retention and started on BPH medication and Estrada had to be inserted. This eventu ally was removed. The patient had no more nausea and vomiting. His H&H remained stable. His white blood cell count came down to 10.2. His blood sugar came down from it being elevated to 232 and then to 196. His urine only showed positive ketones upon admission, elevated glucose, but it showed nega tive infection. The patient did have abdominal pelvis CT also when he came in the hospital in the em ergency room, this showed no acute findings, but a small amount of contrast in the distal esophagus s uggesting GERD and grade 2 spondylolisthesis at lumbosacral junction. The patient's hospital course was unremarkable, eventually moved back to the floor. His vital signs were stable. Blood sugar was better and he was tolerating his diet. His catheter was removed. He became more alert. His family did want him to go home where he would have home health set up. He was discharged on 07/23/2017. DISCHARGE MEDICATIONS: Included: 1. Metformin 1000 mg b.i.d. 2. Coreg 25 mg b.i.d. 3. Lisinopril 5 mg every day. 4. Gabapentin 600 mg every day. 5. Multivitamin every day. 6. Pepcid 40 mg every day. 7. Pravastatin 20 mg every day. 8. Aricept 5 mg every day. 9. Tylenol p.r.n. 10. Tramadol 25 mg b.i.d. 11. Levemir insulin 10 units every day. 12. Flomax 0.4 mg every day. 13. Hytrin 5 mg every day. FOLLOWUP: He is advised to follow up with Stormy or Dr. Muñoz in 1 week. He would also follow up with the other consultants as indicated. This is JAYDON Jimenez-Rosalva, dictating for Myron Muñoz M.D.
== END 2017-07-23 17:03 | disposition home health service (06) | DRG 639 ==
LOC: EDBD 09:03 → ERS 09:03 → IMCU/EMU 14:00 → T4-B 07-17 14:18 → IMCU/EMU 07-19 01:39 → T4-A 07-22 13:39
PROVIDERS: ADMIT Specialist; ATTEND Specialist
PROC: 0DJ08ZZ Inspection of Upper Intestinal Tract, Via Natural or Artificial Opening Endoscopic (ICD-10-PCS; principal; 2017-07-17)
DX: E11.00 Type 2 diabetes mellitus with hyperosmolarity without nonketotic hyperglycemic-hyperosmolar coma (NKHHC) (principal); E11.65 Type 2 diabetes mellitus with hyperglycemia; F03.90 Unspecified dementia, unspecified severity, without behavioral disturbance, psychotic disturbance, mood disturbance, and anxiety; E86.0 Dehydration; E11.10 Type 2 diabetes mellitus with ketoacidosis without coma; I10 Essential (primary) hypertension; Z95.0 Presence of cardiac pacemaker; E87.6 Hypokalemia; K52.9 Noninfective gastroenteritis and colitis, unspecified; K21.9 Gastro-esophageal reflux disease without esophagitis; M43.17 Spondylolisthesis, lumbosacral region; N40.1 Benign prostatic hyperplasia with lower urinary tract symptoms; R33.8 Other retention of urine; D72.829 Elevated white blood cell count, unspecified
CPT/HCPCS: 36415; 36416; 70450; 71010; 74177; 80048; 80053; 81003; 81015; 82010; 82274; 82553; 83036; 83605; 83690; 83735; 83930; 84100; 84484; 85025; 86850; 86900; 86901; 87040; 87086; 93005; 94760; 96361; 96365; 96366; 96367; 96368; 96375; 96376; A4216; C9113; J1815; J2185; J2270; J2405; J2550; J2704; J2765; J3010; J7050

== ENCOUNTER 2017-09-07 03:27 | Inpatient (IN) | payer MEDICARE, MEDICAID ==
[2017-09-07] MEDS ORDERED: Lorazepam 2 MG/ML VIAL ONE ×4 (03:44→05:29)
[2017-09-07 04:32] LABS: #Basophils 0.2 thou/uL (0.0-0.2); #Eosinphils 0.4 thou/uL (0.0-0.7); #Lymphocytes 2.3 thou/uL (1.20-3.40); #Monocytes 0.9 thou/uL (0.11-0.59); #Neutrophils 14.1 thou/uL (1.40-6.50); %Eosinophils 2.4 % (0.0-10.0); %Monocytes 4.8 % (0.0-10.0); %Neutrophils 78.9 % (42.0-75.0); Hemoglobin 15.9 g/dL (14.0-18.0); Mean Corpuscular HGB CONC 30.9 g/dL (32.0-36.0); Mean Corpuscular Volume 84.1 fl (80.0-94.0); Mean Platelet Volume 7.5 fL (7.4-10.4); Platelet Count 530 thou/uL (130-400); RBC Distribution Width 16.5 % (11.5-14.5); Red Blood Cell (RBC) Count 6.14 mill/uL (4.70-6.10); White Blood Cell (WBC) Count 17.9 thou/uL (4.8-10.8)
[2017-09-07 04:51] LABS: ALT (SGPT) 25 U/L (8-55); AST (SGOT) 39 U/L (5-34); Albumin 4.4 g/dL (3.4-4.8); Alkaline Phosphatase 132 U/L (40-150); Anion Gap 15 mmol/L (10-20); BUN (Urea Nitrogen) 14 mg/dL (8.4-25.7); Bilirubin, Total 0.6 mg/dL (0.2-1.2); CK (CPK) 334 U/L (30-200); Calc. Creatinine Clearance 0 mL/min (70-130); Calcium 9.7 mg/dL (7.8-10.44); Carbon Dioxide 27 mmol/L (23-31); Chloride 99 mmol/L (98-107); Estimated GFR-MDRD Greater than 90; Globulin 3.8 g/dL (2.4-3.5); Glucose 67 mg/dL (83-110); Potassium 4.3 mmol/L (3.5-5.1); Protein, Total 8.2 g/dL (5.8-8.1); Sodium 137 mmol/L (136-145)
[2017-09-07 04:56] LABS: Troponin I 0.012 ng/mL (< 0.028)
[2017-09-07 04:59] LABS: CKMB 17.2 ng/mL (0-6.6)
[2017-09-07 05:14] LABS: Bilirubin Negative (Negative); Blood, Urine Small (Negative); Glucose, Urine (Dipstick) 250 mg/dL (Negative); Leukocyte Negative (Negative); Nitrite Negative (Negative); Protein, Urine (Dipstick) 100 mg/dL (Neg-Trace); Urobilinogen 0.2 mg/dL (0.2-1.0); pH, Urine 6.5 (5.0-9.0)
[2017-09-07 05:17] LABS: Bacteria/HPF None Seen HPF (None Seen); Clarity Clear (Clear); Hyaline Casts/LPF NONE SEEN LPF (0-3 Hyaline); Other Microscopic Description Less than 2 mL rec'd; RBC/HPF 0-3 HPF (0-3); Squamous Epithelial None Seen HPF (0-3); WBC/HPF None Seen HPF (0-3)
[2017-09-07] MEDS ORDERED: Dextrose 50% Abboject 50 ML SYRINGE ONE (05:23)
[2017-09-07 05:41] LABS: Amphetamine Not Detected (NotDetected); Barbiturates Screen Not Detected (NotDetected); Benzodiazepine Screen Not Detected (NotDetected); Cocaine Metabolite Screen Not Detected (NotDetected); Medtox Control Line Valid? VALID (VALID); Medtox Reader # READER 4; Methadone Not Detected (NotDetected); Methamphetamine Not Detected (NotDetected); Opiate Screen Not Detected (NotDetected); Oxycodone Screen Not Detected (NotDetected); Phencyclidine (PCP) Not Detected (NotDetected); THC/Cannabinoid Screen Not Detected (NotDetected); Tricyclic Screen Not Detected (NotDetected)
[2017-09-07] MEDS ORDERED: Haloperidol Lactate 5 MG/ML VIAL ONE (06:04)
[2017-09-07] MEDS ORDERED: Piperacillin/Tazobactam 4.5 GM in Sodium Chloride 0.9% 100 ML IVPB SCH (06:15)
--- NOTE | 2017-09-07 07:31 | RAD ---
SINGLE VIEW OF THE CHEST: COMPARISON: 06/15/17. HISTORY: Hypoglycemia. Altered mental status. FINDINGS: A single view of the chest shows a normal-size cardiomediastinal silhouette. The pacemaker is unchan ged in position. There is no evidence of consolidation, mass, or pleural effusion. IMPRESSION: No evidence of acute cardiopulmonary disease. POS: [facility]
--- NOTE | 2017-09-07 08:57 | CT ---
PRELIMINARY REPORT/[facility]/EMERGENCY AFTER HOURS PROCEDURE: EXAM: CT Head Without Intravenous Contrast CLINICAL HISTORY: 71 years old, male; Signs and symptoms; Altered mental status/memory loss; Confusion or disorientatio n; Patient HX: 71 yo m presents to ed for hypoglycemia. Ems reports pt was at home with a friend then suddenly started talking abnormally and not making sense. On ems arrival, pt was in bed, pants off, and had urinated on self and was moaning, groaning, and fighting; Additional info: *s can done helical due to pt constantly moving TECHNIQUE: Axial computed tomography images of the head/brain without intravenous contrast. COMPARISON: No relevant prior studies available. FINDINGS: No definite acute skull fracture. Included paranasal sinuses are essentially clear. No acute intracranial hemorrhage or mass effect. Ventricle size is normal for age. There is very mild, relatively symmetrical decreased attenuation in the periventricular white matter, likely from microvascular disease. No definite acute infarct by CT. MRI could be more sensitive/specific for an acute infarct if clinically indicated. IMPRESSION: No acute intracranial bleed or mass effect. Changes of microvascular disease. No definite acute infarct by CT, see above. Thank you for allowing us to participate in the care of your patient. Dictated and Authenticated by: Armando Galdamez MD 09/07/2017 4:34 AM Central Time ([place] & [place]) FINAL REPORT EMERGENT AFTER HOURS CT OF THE BRAIN WITHOUT CONTRAST: FINDINGS/IMPRESSION: I agree with the findings and impression given in the preliminary report per [facility] physician. No rosalina dence of acute intracranial abnormality. POS: [facility]
[2017-09-07] MEDS ORDERED: Acetaminophen 650 MG Suppository ONE (09:31)
[2017-09-07] MEDS ORDERED: Dextrose 5% in Water 1,000 ML IV PRN (10:38)
[2017-09-07] MEDS ORDERED: Dextrose 50% Abboject 50 ML SYRINGE IVP PRN (10:38)
[2017-09-07] MEDS ORDERED: Ondansetron HCl/PF 4 MG/2 ML Vial SLOW IVP PRN (10:39)
[2017-09-07] MEDS ORDERED: Haloperidol Lactate 5 MG/ML VIAL SLOW IVP PRN (10:40)
[2017-09-07 10:41] LABS: Lactic Acid 1.4 mmol/L (0.5-2.2)
[2017-09-07] MEDS ORDERED: Acetaminophen 325 MG Suppository PR PRN (10:42)
[2017-09-07] MEDS ORDERED: Dextrose 5 %-0.45 % NaCl 1,000 ML IV SCH ×2 (10:45)
[2017-09-07] MEDS ORDERED: Prevnar 13-Val Conj/PF 0.5 ML SYRINGE IM ONE (12:15)
[2017-09-07] MEDS ORDERED: FLU VACC TS2017-18 (>65YR) 0.5 ML SYRINGE IM ONE (12:15)
[2017-09-07] MEDS: Enalaprilat Dihydrate 1.25 MG/ML VIAL SLOW IVP PRN (12:19)
--- NOTE | 2017-09-07 12:54 | HP ---
DATE OF ADMISSION: 09/07/2017 CHIEF COMPLAINT: Hypoglycemia with hypothermia and leukocytosis. HISTORY OF PRESENT ILLNESS: The patient is a 71-year-old Latin-Cam[place] male, who has been noted on an outpatient basis to have increasing confusion. It was felt to be the onset of dementia and he was initiated on Aricept at bedtime. On the evening prior to admission, he kept walking [facility] with continued to control, where asking for help to fix the TV. At 11:00 p.m. he did this aga in when he had just been there a few minutes earlier and it was obvious that he has had no recollecti on of his previous request. Also noted when they were in the home they found drawers full of his med ication indicating that he has not been taking these correctly as well. He was found by his roommate to be severely confused later on that evening and dock boss and EMS was called. They noted his blood sugar to be in the 40s at the time they arrived and gave him an amp of D50. He did not respond and came to the emergency room where more D50 was repeated and his blood sugar got to 60. He was st ill quite confused and very, very agitated, such that repeated doses of Ativan and Haldol were necess arian to keep him from being combative. He was noted to have an elevated white count at this time and his core temperature was 94 degrees. All these things necessitated admission for correction and furt her evaluation. At the time of evaluation, he is still agitated, moving his limbs without purpose, m oaning, and in a semi-sedated state of mind. Unable to converse. History was obtained from family m geovannaangus. PAST MEDICAL HISTORY: Significant for pacemaker placement, diabetes, coronary artery disease, GERD, hypertension, anxiety disorder, and osteoarthritis. PAST SURGICAL HISTORY: Includes bilateral carpal tunnel surgery in 2016 and recent pacemaker placeme nt. PSYCHIATRIC HISTORY: None. SOCIAL HISTORY: He is , does not smoke or drink or use illicit drugs. ALLERGIES: He has no known drug allergies. CURRENT MEDICATIONS: Tramadol 50 q.4 hours p.r.n. pain, lisinopril 20 mg daily, metformin 1000 mg b. i.d., gabapentin 800 mg t.i.d., carvedilol 12.5 mg b.i.d., and Pepcid 20 mg daily. REVIEW OF SYSTEMS: Unable to obtain at this time due to patient's altered state, but aside from neur ologically being mentally confused, unable to elicit other problems through a 10-system review. PHYSICAL EXAMINATION: VITAL SIGNS: At the time of admission, blood pressure is 160/70, pulse rate 90, he weighs 63.5 kilog lazara. He has soft restraints over at this time, attempting fight the restraints and pull out his IVs . GENERAL: Well-developed, well-nourished elderly male, unresponsive at this time, combative and clean his extremities without purpose. HEENT: Pupils equal, round, and reactive to light at 2-3 mm bilaterally. Unable to test extraocular muscles at this time. TMs, nares, pharynx are clear. CHEST: Clear to auscultation. HEART: Regular rate and rhythm. ABDOMEN: Soft, unable to appreciate tenderness or organomegaly at this time. GENITOURINARY: Deferred. EXTREMITIES: Without clubbing, cyanosis, or edema. Normal range of motion present. Symmetrical mus cular tone were noted except in the bilateral thenar eminences of both hands where there has been mus vicki wasting due to severe carpal tunnel syndrome bilaterally. SKIN: Without acute rashes or lesions. NEUROLOGIC: Unable to test due to patient's sedation and combativeness. SKIN: No acute rashes or lesions. LABORATORY DATA: Lab thus far, chest x-ray is clear. Brain scan shows no acute findings. WBC 17.9, hemoglobin 15.9, hematocrit 51.7 with platelets of 530. Sodium 137, potassium 4.3, chloride 99, CO2 of 27, BUN 14, creatinine 0.7 with a glucose of 67 at 03:50 in the morning. His last glucose check was 127 this morning. Lactic acid elevated at 4.1. CK-MB elevated at 17, but troponin is negative a t 0.12. Liver functions normal. Urine shows protein and 250 glucose, small blood. Urinary drug scr een is entirely negative. ASSESSMENT: 1. Hypoglycemia. 2. Hypothermia. 3. Metabolic encephalopathy. 4. Dementia. 5. Leukocytosis, etiology probably due to margination/stress reaction due to the severe hypothermia. 5. Hypertension. PLAN: Will be to admit him to a medical bed, serially reevaluate him neurologically and with fingers tick glucose we will maintain sugar through a D5 drip and he is not allowed n.p.o. until he is right mentally. Family members will need to stay with him. He is going to maintain restraints to maintain IV access and we will serially reevaluate him for clearing of his mental status.
[2017-09-07] MEDS: Labetalol HCl 100 MG/20 ML VIAL SLOW IVP PRN (15:22)
[2017-09-07] MEDS: Sodium Chloride 0.45% 1,000 ML IV SCH ×2 (15:23→23:30)
[2017-09-07] MEDS: Lorazepam 2 MG/ML VIAL SLOW IVP PRN ×2 (16:55→20:14)
[2017-09-07] MEDS: Insulin Regular 300 UNITS/3 ML VIAL SC PRN (16:57)
[2017-09-08] MEDS: Lorazepam 2 MG/ML VIAL SLOW IVP PRN ×2 (00:34→08:46)
[2017-09-08] MEDS: Insulin Regular 300 UNITS/3 ML VIAL SC PRN ×2 (00:37→04:56)
[2017-09-08 05:42] LABS: #Basophils 0.1 thou/uL (0.0-0.2); #Eosinphils 0.1 thou/uL (0.0-0.7); #Lymphocytes 2.7 thou/uL (1.20-3.40); #Monocytes 1.2 thou/uL (0.11-0.59); %Basophils 0.8 % (0.0-1.0); %Eosinophils 0.9 % (0.0-10.0); %Lymphocytes 17.5 % (21.0-51.0); %Monocytes 7.8 % (0.0-10.0); Hemoglobin 15.5 g/dL (14.0-18.0); Mean Corpuscular HGB CONC 31.3 g/dL (32.0-36.0); Mean Corpuscular Volume 83.2 fl (80.0-94.0); Mean Platelet Volume 7.3 fL (7.4-10.4); Platelet Count 478 thou/uL (130-400); RBC Distribution Width 16.7 % (11.5-14.5); Red Blood Cell (RBC) Count 5.95 mill/uL (4.70-6.10); White Blood Cell (WBC) Count 15.1 thou/uL (4.8-10.8)
[2017-09-08 06:01] LABS: ALT (SGPT) 21 U/L (8-55); AST (SGOT) 41 U/L (5-34); Albumin 3.6 g/dL (3.4-4.8); Alkaline Phosphatase 110 U/L (40-150); Anion Gap 15 mmol/L (10-20); BUN (Urea Nitrogen) 22 mg/dL (8.4-25.7); Bilirubin, Total 1.3 mg/dL (0.2-1.2); Calc. Creatinine Clearance 72 mL/min (70-130); Calcium 8.9 mg/dL (7.8-10.44); Carbon Dioxide 18 mmol/L (23-31); Chloride 101 mmol/L (98-107); Estimated GFR-MDRD Greater than 90; Globulin 3.1 g/dL (2.4-3.5); Glucose 170 mg/dL (83-110); Potassium 4.1 mmol/L (3.5-5.1); Protein, Total 6.7 g/dL (5.8-8.1); Sodium 130 mmol/L (136-145)
[2017-09-08] MEDS: Sodium Chloride 0.45% 1,000 ML IV SCH ×3 (06:17→23:55)
--- NOTE | 2017-09-08 10:42 | PRG ---
DATE OF SERVICE: 09/08/2017 SUBJECTIVE: The patient is confused. He is in 4-point restraints. There is no family here. PHYSICAL EXAMINATION: VITAL SIGNS: Blood pressure is 134/90, pulse 76, respirations 20. He is afebrile. NECK: Supple with no increased JVP or carotid bruit. Carotid had good upstroke with no thyromegaly. COR: Regular rate and rhythm. CHEST: Symmetrical. Clear to auscultation and percussion. ABDOMEN: Soft, nontender with normoactive bowel sounds. No bruit or organomegaly. EXTREMITIES: No edema or cyanosis. He had palpable pedal pulses. SKIN: There is no evidence of ulcer, lesion or rash. NEUROLOGIC: He is confused. His chest x-ray is normal. LABORATORY DATA: CBC showed white blood cell count 15.1, his H&H 15.5 and 49.5. His platelet count is 478, blood culture is pending. I do not see a UA in the chart. ASSESSMENT: 1. Altered mental status. 2. Leukocytosis. We will rule out urinary tract infection. 3. Dementia. 4. Hypertension. PLAN: 1. We will go ahead and start prophylactic antibiotics after urine C&S are complete. 2. We will continue checking fasting blood sugars every 4 hours and use sliding scale per protocol. 3. We will continue IV fluids. 4. Hopefully, the patient will turnaround in the next 24-48 hours.
[2017-09-08] MEDS: cefTRIAXone\\ROCEPHIN 1 GM, Syringe 0.4 ML in Sterile Water 9.6 ML SLOW IVP SCH (12:16)
[2017-09-08] MEDS: Labetalol HCl 100 MG/20 ML VIAL SLOW IVP PRN (20:50)
[2017-09-08 21:33] LABS: #Lymphocytes 0.8 thou/uL (1.20-3.40); #Monocytes 0.3 thou/uL (0.11-0.59); #Neutrophils 14.9 thou/uL (1.40-6.50); %Basophils 0.2 % (0.0-1.0); %Eosinophils 0.2 % (0.0-10.0); %Lymphocytes 4.9 % (21.0-51.0); %Monocytes 1.8 % (0.0-10.0); %Neutrophils 92.8 % (42.0-75.0); Hemoglobin 16.4 g/dL (14.0-18.0); Mean Corpuscular HGB CONC 30.8 g/dL (32.0-36.0); Mean Corpuscular Hemoglobin 25.4 pg (27.0-31.0); Mean Corpuscular Volume 82.7 fl (80.0-94.0); Mean Platelet Volume 7.2 fL (7.4-10.4); Platelet Count 507 thou/uL (130-400); RBC Distribution Width 16.9 % (11.5-14.5); Red Blood Cell (RBC) Count 6.46 mill/uL (4.70-6.10)
[2017-09-08] MEDS: Ondansetron HCl/PF 4 MG/2 ML Vial SLOW IVP PRN (21:55)
--- NOTE | 2017-09-08 23:53 | RAD ---
AP ABDOMINAL RADIOGRAPH 09/08/17 HISTORY: Verify nasogastric tube placement. FINDINGS: There is partial visualization of triple lead left subclavian cardiac pacemaking device. A nasogastri c tube is noted in place with the tip overlying the expected region of the gastric fundus. Bowel gas pattern in the upper abdomen is nonspecific. Lower abdomen and pelvis are excluded from view. Visuali zed lung bases are clear. IMPRESSION: Nasogastric tube noted in place with tip overlying the expected location of the gastric fundus. POS: [facility]
[2017-09-09] MEDS: Sodium Chloride 0.45% 1,000 ML IV SCH ×4 (00:40→23:05)
[2017-09-09 05:59] LABS: #Lymphocytes 0.8 thou/uL (1.20-3.40); #Monocytes 0.3 thou/uL (0.11-0.59); #Neutrophils 16.1 thou/uL (1.40-6.50); %Basophils 0.1 % (0.0-1.0); %Eosinophils 0.2 % (0.0-10.0); %Lymphocytes 4.4 % (21.0-51.0); %Monocytes 1.7 % (0.0-10.0); %Neutrophils 93.7 % (42.0-75.0); Hemoglobin 15.9 g/dL (14.0-18.0); Mean Corpuscular HGB CONC 32.1 g/dL (32.0-36.0); Mean Corpuscular Hemoglobin 26.8 pg (27.0-31.0); Mean Corpuscular Volume 83.4 fl (80.0-94.0); Mean Platelet Volume 8.1 fL (7.4-10.4); Platelet Count 468 thou/uL (130-400); RBC Distribution Width 16.9 % (11.5-14.5); Red Blood Cell (RBC) Count 5.92 mill/uL (4.70-6.10); White Blood Cell (WBC) Count 17.2 thou/uL (4.8-10.8)
[2017-09-09 06:07] LABS: ALT (SGPT) 25 U/L (8-55); AST (SGOT) 29 U/L (5-34); Albumin 3.6 g/dL (3.4-4.8); Alkaline Phosphatase 125 U/L (40-150); Anion Gap 29 mmol/L (10-20); BUN (Urea Nitrogen) 29 mg/dL (8.4-25.7); Calc. Creatinine Clearance 51 mL/min (70-130); Calcium 8.9 mg/dL (7.8-10.44); Carbon Dioxide 14 mmol/L (23-31); Chloride 96 mmol/L (98-107); Estimated GFR-MDRD 67; Globulin 3.3 g/dL (2.4-3.5); Glucose 349 mg/dL (83-110); Potassium 3.8 mmol/L (3.5-5.1); Protein, Total 6.9 g/dL (5.8-8.1); Sodium 135 mmol/L (136-145)
[2017-09-09] MEDS: Insulin Regular 300 UNITS/3 ML VIAL SC PRN ×3 (06:36→23:00)
[2017-09-09] MEDS ORDERED: Promethazine HCl 25 MG/ML VIAL SLOW IVP SCH (10:30)
[2017-09-09] MEDS ORDERED: Pantoprazole 40 MG VIAL IVP SCH (11:00)
[2017-09-09] MEDS: cefTRIAXone\\ROCEPHIN 1 GM, Syringe 0.4 ML in Sterile Water 9.6 ML SLOW IVP SCH (11:21)
--- NOTE | 2017-09-09 12:32 | CT ---
CT OF THE ABDOMEN AND PELVIS WITH CONTRAST: Date: 09/09/17 HISTORY: Vomiting coffeeground emesis since yesterday. TECHNIQUE: Multiple contiguous axial images were obtained in a CT of the abdomen with contrast. Coronal reformat s were performed. FINDINGS: The liver, gallbladder, right kidney, adrenal glands, spleen, and pancreas are unremarkable. There is a small, subcentimeter hypodensity in the posterior left kidney which likely represents a small cyst , but is too small to definitely characterize. The large and small bowel are normal in caliber. There is a moderate amount of stool in the rectal vault. A NG tube is seen in the stomach. No abdominal or pelvic lymphadenopathy seen. The urinary bladder is distended. Diffuse soft tissue anasarca is seen. Degenerative changes are seen in the spine. The visualized infe rior thorax is unremarkable. IMPRESSION: 1. No evidence of acute intra-abdominal/pelvic abnormality. 2. Left renal cyst. POS: [facility]
--- NOTE | 2017-09-09 12:56 | CON ---
DATE OF CONSULTATION: 09/09/2017 GI INPATIENT CONSULTATION NOTE REQUESTING PHYSICIAN: Dr. Muñoz. REASON FOR CONSULTATION: Upper GI bleeding. HISTORY OF PRESENT ILLNESS: Jama Sahu is a 71-year-old man whom I met 2 months ago in 06/2017, at that time he was hospitalized for diabetic ketoacidosis. During his hospitalization, he had acute coffee-ground emesis. I performed an EGD on 07/17/2017. This demonstrated shallow erosion at the G E junction, which I felt likely represented a healing Fransisca-Gillis tear, the EGD was otherwise chari l. He never developed any significant anemia during that hospitalization and evidently did fine sinc e then. He returned to the hospital 2 days ago with altered mental status, hypothermia, and hypergly cemia. He has been treated with IV fluids. He has continued to have altered mental status over the past couple of days. Since yesterday, it appears he has developed an anion gap and last night, he [place] d acute emesis of large amount of coffee-ground material. Nasogastric tube was placed and suctioned out over 300 mL of dark coffee-ground material this morning. Despite this, hemoglobin is stable this morning at 15.9, BUN to trend up to 29 with creatinine of 1.08. He has remained hemodynamically sta ble. He is currently confused, not answering all questions. He denies any abdominal pain though and his abdomen is nontender to palpation. He was evaluated by Speech Pathology and his swallowing func tion is felt to be intact. REVIEW OF SYSTEMS: Unable to obtain due to patient's altered mental status. This is despite using a dairy feed mixing operator by phone. PAST MEDICAL HISTORY: Pacemaker placement, diabetes, diabetic ketoacidosis, coronary artery disease, GERD, hypertension, anxiety, osteoarthritis, bilateral carpal tunnel surgery in 2016, Fransisca-Gillis tear with upper GI bleeding in 06/2017. SOCIAL HISTORY: He is . No smoking, alcohol, or drug use. ALLERGIES: No known drug allergies. OUTPATIENT MEDICATIONS: Pepcid 20 mg daily, tramadol p.r.n., lisinopril 20 mg daily, metformin 1000 mg b.i.d., gabapentin, and carvedilol. FAMILY HISTORY: Unable to obtain from the patient. PHYSICAL EXAMINATION: VITAL SIGNS: Temperature 98.4, pulse 91, blood pressure 125/58, 95% oxygen saturation on room air. GENERAL: A 71-year-old man sitting up in bed comfortably, in no acute distress. EYES: No scleral icterus. Extraocular movements intact. ENT: He has a nasogastric tube placed to the right naris. This is suctioning out dark coffee-ground material. No lauren blood. LYMPH: No submandibular or supraclavicular lymphadenopathy. THYROID: Nontender to palpation. HEART: Regular rate and rhythm. LUNGS: Clear to auscultation bilaterally. ABDOMEN: Bowel sounds present, soft, nontender to deep palpation throughout, nondistended. EXTREMITIES: No peripheral edema. VESSELS: Radial pulses 2+ bilaterally. NEUROLOGICAL: Cranial nerves II-XII intact bilaterally. No focal deficits. LABORATORY STUDIES: WBC up to 17.2, hemoglobin 15.9, hematocrit 49.4, platelets 468. Sodium 135, po tassium 3.8, carbon dioxide only 14, BUN 29, creatinine 108, glucose 306. LFTs normal with total radha irubin 1.0, alkaline phosphatase 125, AST 29, ALT 25. Urine drug screen is negative. ASSESSMENT AND PLAN: 1. Acute hematemesis, representing upper gastrointestinal bleeding. 2. Likely diabetic ketoacidosis. This is very similar presentation to his hospitalization in [facility] er of last year. At that time, an upper endoscopy demonstrated only what appeared to be a healing Ma llory-Gillis tear. The differential here would be recurrence of Fransisca-Gillis tear versus Dieulafoy l esion or other missed lesion on exam last time. I do think it would be reasonable to perform EGD lat er today for further evaluation. I agree with the IV Protonix 40 mg b.i.d. in the meantime. Please keep him n.p.o. for now. Further recommendations following endoscopy.
[2017-09-09] MEDS ORDERED: Propofol 200 MG/20 ML VIAL ONE (14:33)
[2017-09-09] MEDS ORDERED: Lidocaine 1% PF 5 ML VIAL ONE (14:33)
[2017-09-09] MEDS ORDERED: Promethazine HCl 25 MG/ML VIAL IM PRN (15:32)
[2017-09-09] MEDS ORDERED: Promethazine HCl 25 MG/ML VIAL SLOW IVP PRN (15:32)
[2017-09-09] MEDS ORDERED: Ondansetron HCl/PF 4 MG/2 ML Vial IVP PRN (15:32)
[2017-09-09] MEDS ORDERED: ISOVUE-370 76%-LOCM 1 ML ONE (16:02)
[2017-09-09] MEDS ORDERED: Labetalol HCl 100 MG/20 ML VIAL ONE (16:22)
[2017-09-09] MEDS ORDERED: hydrALAZINE 20 MG/ML VIAL ONE (16:41)
[2017-09-09] MEDS: Labetalol HCl 100 MG/20 ML VIAL SLOW IVP PRN ×2 (18:23→23:01)
[2017-09-09] MEDS ORDERED: Labetalol 100 MG/20 ML MDV SLOW IVP SCH (18:30)
[2017-09-09] MEDS ORDERED: hydrALAZINE 20 MG/ML VIAL SLOW IVP SCH (18:30)
--- NOTE | 2017-09-09 18:55 | OP ---
DATE OF PROCEDURE: 09/09/2017 GI ENDOSCOPY NOTE SURGEON: Armando Mckinnon M.D. ROPING TENDER SURGEON: None. PROCEDURE: Esophagogastroduodenoscopy, diagnostic. INDICATION: Acute hematemesis. MEDICATIONS: See anesthesia record. FINDINGS: After discussion of the risks, benefits and alternatives of the procedure, informed consen t was obtained and witnessed. Pre-endoscopic cardiopulmonary examination was satisfactory. Timeout was performed before sedation was achieved. Sedation was achieved with anesthesia assistance in the endoscopy unit. The patient was placed in the left lateral decubitus position. A Pentax adult thera peutic upper endoscope was placed into the oropharynx and passed through the cricopharyngeus under di rect visualization. The proximal and mid esophageal mucosa appeared normal. In the distal esophagus just above the GE junction, there is some grade A esophagitis. There is no evidence of any esophage al varices. The endoscope was then passed into the stomach. Forward and retroflexed views of the en tire gastric mucosa were obtained. There was no old blood or active bleeding in the stomach. The pa tient's nasogastric tube was removed. There were no gastric varices on retroflexion. In the gastric fundus and body, there is patchy severe erosive gastritis characterized by multiple erosions, most o f these are quite small and clean based. There were three larger erosions in the gastric body with b lack eschar, but no blood clots and no visible vessels. There were several areas of submucosal hemor rhage and overall friability to the gastric mucosa. The endoscope was advanced through the pylorus a nd into the first and second portions of the duodenum which appeared normal. I did not obtain gastri c biopsies on this examination due to the patient's recent bleeding. The upper endoscope was complet akhil withdrawn and the patient allowed to recover. The patient tolerated the procedure well. There w ere no immediate post-procedure complications. IMPRESSION: 1. Severe erosive gastritis, patchy, in the gastric fundus and body. 2. Mild distal esophagitis. 3. No old blood or active bleeding on this exam. 4. No esophageal or gastric varices. 5. No large ulcerations. RECOMMENDATIONS: 1. Advance diet as tolerated. 2. Daily proton pump inhibitor. I would continue this indefinitely in his case. 3. We will check an H. pylori serology. If positive, treat with triple therapy and confirm eradicat ion.
[2017-09-09] MEDS: Enalaprilat Dihydrate 1.25 MG/ML VIAL SLOW IVP PRN (18:59)
[2017-09-09] MEDS ORDERED: Fentanyl 100 MCG/2 ML VIAL SLOW IVP PRN (18:59)
[2017-09-09] MEDS ORDERED: Lidocaine 2% Viscous Solution 10 ML, Aluminum & Magnesium Hydroxide 30 ML SSW SCH ×2 (19:00)
[2017-09-09] MEDS: Pantoprazole 40 MG VIAL IVP SCH (21:52)
[2017-09-10] MEDS: Labetalol HCl 100 MG/20 ML VIAL SLOW IVP PRN ×4 (00:29→18:08)
[2017-09-10] MEDS: Enalaprilat Dihydrate 1.25 MG/ML VIAL SLOW IVP PRN ×2 (01:19→14:31)
[2017-09-10] MEDS: Insulin Regular 300 UNITS/3 ML VIAL SC PRN ×3 (01:19→20:52)
[2017-09-10] MEDS ORDERED: Acetaminophen 325 MG TAB PO PRN (03:40)
[2017-09-10] MEDS ORDERED: Lisinopril 20 MG TAB PO SCH (03:45)
[2017-09-10] MEDS ORDERED: traMADol HCl 50 MG TAB PO PRN (03:45)
[2017-09-10] MEDS ORDERED: Carvedilol 25 MG TAB PO SCH (03:45)
[2017-09-10] MEDS ORDERED: Lidocaine 2% Viscous Solution 10 ML, Aluminum & Magnesium Hydroxide 30 ML SSW SCH ×2 (05:00)
[2017-09-10 06:05] LABS: Anion Gap 18 mmol/L (10-20); BUN (Urea Nitrogen) 23 mg/dL (8.4-25.7); Calc. Creatinine Clearance 56 mL/min (70-130); Calcium 9.2 mg/dL (7.8-10.44); Carbon Dioxide 22 mmol/L (23-31); Chloride 99 mmol/L (98-107); Estimated GFR-MDRD 77; Glucose 225 mg/dL (83-110); Lipase 5 U/L (8-78); Potassium 3.2 mmol/L (3.5-5.1); Sodium 136 mmol/L (136-145)
[2017-09-10 06:32] LABS: Hemoglobin 16.8 g/dL (14.0-18.0); Mean Corpuscular HGB CONC 31.2 g/dL (32.0-36.0); Mean Corpuscular Hemoglobin 25.6 pg (27.0-31.0); Mean Corpuscular Volume 82.1 fl (80.0-94.0); Mean Platelet Volume 7.4 fL (7.4-10.4); Platelet Count 555 thou/uL (130-400); RBC Distribution Width 17.2 % (11.5-14.5); Red Blood Cell (RBC) Count 6.57 mill/uL (4.70-6.10); White Blood Cell (WBC) Count 21.4 thou/uL (4.8-10.8)
[2017-09-10 07:09] LABS: Band 17 % (5-11); Large Platelets SLIGHT; Lymphocytes 3 % (21-51); MDiff Complete? YES; Monocytes 4 % (0-10); Neutrophil 73 % (42-75); PLT Morphology Comment Appears Increased; RBC Morphology Normal; Reactive Lymphocytes 3 % (0-10)
--- NOTE | 2017-09-10 08:56 | PRG ---
DATE OF SERVICE: 09/10/2017 SUBJECTDIVE: The patient is awake. He is confused. He has a sitter at bedside. According to sitte r he had a good night. He did sleep well. He did undergo EGD and with findings as enumerated in the operative note. He did have a positive blood culture 1 of 2 so far. LABORATORY DATA: His white blood cell count remains elevated. It is now 21.4. His H&H is normal. His potassium is low at 3.2. PHYSICAL EXAMINATION: GENERAL: Upon evaluation as above he is awake, he is confused. VITAL SIGNS: Blood pressure is 158/90, pulse 80, respirations 18, afebrile. NECK: Supple with no increased JVP or carotid bruit. Carotid had good upstroke with no thyromegaly. COR: Regular rate and rhythm. CHEST: Symmetrical. Clear to auscultation and percussion. ABDOMEN: Soft, nontender with normoactive bowel sounds. No bruit or organomegaly. EXTREMITIES: No edema or cyanosis. He had palpable pedal pulses. SKIN: There is no evidence of ulcer, lesion, or rash. NEUROLOGIC: He is confused. ASSESSMENT: 1. Severe erosive gastritis. 2. Dementia. 3. Hypertension. 4. Diabetes. 5. Bacteremia. 6. Hypokalemia. PLAN: We will start the patient on vancomycin 1 gram IV q.24h. and get Pharmacy to do [facility]. We will follow up with a CBC and CMP in the morning. We will also give a potassium dose now and discontinue the patient's tramadol as her already has orders for fentanyl on pain.
[2017-09-10] MEDS ORDERED: Potassium Chloride 20 MEQ TAB PO SCH (09:30)
[2017-09-10] MEDS: Vancomycin HCl 1 GM in Premix Bag 1 BAG IVPB SCH (10:03)
[2017-09-10] MEDS: metFORMIN 500 MG TAB PO SCH ×2 (10:03→18:03)
[2017-09-10] MEDS: Carvedilol 25 MG TAB PO SCH ×2 (10:04→20:51)
[2017-09-10] MEDS: Lisinopril 20 MG TAB PO SCH (10:05)
[2017-09-10] MEDS: Gabapentin 400 MG CAP PO SCH ×3 (10:06→20:51)
[2017-09-10] MEDS: Famotidine 20 MG TAB PO SCH (10:07)
[2017-09-10] MEDS: Pantoprazole 40 MG VIAL IVP SCH ×2 (10:07→20:52)
[2017-09-10] MEDS: Sodium Chloride 0.45% 1,000 ML IV SCH ×2 (11:51→20:43)
[2017-09-10] MEDS: cefTRIAXone\\ROCEPHIN 1 GM, Syringe 0.4 ML in Sterile Water 9.6 ML SLOW IVP SCH (18:37)
[2017-09-11] MEDS: Sodium Chloride 0.45% 1,000 ML IV SCH ×3 (03:25→20:39)
[2017-09-11 05:12] LABS: ALT (SGPT) 18 U/L (8-55); AST (SGOT) 25 U/L (5-34); Albumin 3.1 g/dL (3.4-4.8); Alkaline Phosphatase 102 U/L (40-150); Anion Gap 15 mmol/L (10-20); BUN (Urea Nitrogen) 29 mg/dL (8.4-25.7); Bilirubin, Total 1.2 mg/dL (0.2-1.2); Calc. Creatinine Clearance 53 mL/min (70-130); Calcium 8.2 mg/dL (7.8-10.44); Carbon Dioxide 21 mmol/L (23-31); Chloride 98 mmol/L (98-107); Estimated GFR-MDRD 72; Globulin 2.7 g/dL (2.4-3.5); Glucose 142 mg/dL (83-110); Potassium 3.7 mmol/L (3.5-5.1); Protein, Total 5.8 g/dL (5.8-8.1); Sodium 130 mmol/L (136-145)
[2017-09-11 05:38] LABS: Band 7 % (5-11); Eosinophils 3 % (0-10); Hemoglobin 15.7 g/dL (14.0-18.0); Lymphocytes 16 % (21-51); MDiff Complete? YES; Mean Corpuscular HGB CONC 33.7 g/dL (32.0-36.0); Mean Corpuscular Hemoglobin 27.9 pg (27.0-31.0); Mean Corpuscular Volume 82.9 fl (80.0-94.0); Mean Platelet Volume 7.4 fL (7.4-10.4); Monocytes 4 % (0-10); Neutrophil 69 % (42-75); Platelet Count 373 thou/uL (130-400); Reactive Lymphocytes 1 % (0-10); Red Blood Cell (RBC) Count 5.64 mill/uL (4.70-6.10); White Blood Cell (WBC) Count 14.6 thou/uL (4.8-10.8)
--- NOTE | 2017-09-11 08:26 | PRG ---
DATE OF SERVICE: 09/11/2017 SUBJECTIVE: The patient still remained confused. He did not have a sitter last night and he fell. There was no reported injury. PHYSICAL EXAMINATION: VITAL SIGNS: Blood pressure is better at 143/83, pulse 68, respiration 16, temperature 97.6. NECK: Supple with no increased JVP or carotid bruit. Carotid had good upstroke with no thyromegaly. COR: Regular rate and rhythm. CHEST: Symmetrical. Clear to auscultation and percussion. ABDOMEN: Soft, nontender with normoactive bowel sounds. No bruit or organomegaly. EXTREMITIES: No edema or cyanosis. He had palpable pedal pulses. SKIN: There is no evidence of ulcer, lesion, or rash. NEUROLOGIC: He is still confused. LABORATORY DATA: Showed white blood cell to be better at 14.6, yesterday it was 21.4. His urine cul ture is negative. Blood culture is positive. ASSESSMENT: 1. Bacteremia. 2. Severe erosive gastritis. 3. Dementia. 4. Hypertension. 5. Diabetes. PLAN: I am still waiting on the MRA of his head. We will also ask physical therapy to see the patie nt in consultation. I will speak with Dr. Muñoz as I feel like the patient does need a PICC line in to continue IV antibiotics for at least 14 days at a assisted facility.
--- NOTE | 2017-09-11 10:48 | CT ---
CT OF THE BRAIN WITHOUT AND WITH CONTRAST: Comparison: None. History: Fall last night with altered mental status. Technique: Multiple contiguous axial images were obtained in a CT of the brain without and with IV co ntrast. FINDINGS: The brain is normal in morphology and attenuation without focal lesions or confluent areas of infarct ion. No abnormal enhancement is seen. There is no evidence of hydrocephalus, intracranial hemorrhage, or extraaxial fluid collection. The calvarium and overlying soft tissues are unremarkable. The visualized paranasal sinuses and masto id air cells are well aerated. IMPRESSION: No evidence of acute intracranial abnormality. POS: [facility]
--- NOTE | 2017-09-11 11:05 | CT ---
CT PARANASAL SINUSES WITH IV CONTRAST: History: Fall. Sinus injury. FINDINGS: The globes and zygomatic arches are intact. No acute fracture is apparent. There is minimal mucosal t hickening in the right maxillary sinus. A small amount of mucosal thickening is present within the le ft maxillary sinus with small amount of fluid layering in the dependent portion. Ethmoid infundibula remain patent. Slight leftward deviation of the nasal septum is apparent. There is calcification in the arterial structures at the brain base. IMPRESSION: 1. No acute traumatic injury is demonstrated. 2. Left maxillary sinusitis. 3. Atherosclerosis. POS: [facility]
[2017-09-11] MEDS: Pantoprazole 40 MG VIAL IVP SCH ×2 (11:18→20:40)
[2017-09-11] MEDS: Lisinopril 20 MG TAB PO SCH (11:19)
[2017-09-11] MEDS: metFORMIN 500 MG TAB PO SCH ×2 (11:19→17:53)
[2017-09-11] MEDS: Vancomycin HCl 1 GM in Premix Bag 1 BAG IVPB SCH (11:19)
[2017-09-11] MEDS: Gabapentin 400 MG CAP PO SCH ×3 (11:20→20:39)
[2017-09-11] MEDS: Famotidine 20 MG TAB PO SCH (11:20)
[2017-09-11] MEDS: Carvedilol 25 MG TAB PO SCH ×2 (11:20→20:39)
--- NOTE | 2017-09-11 11:29 | SPC ---
SONOGRAPHIC GUIDED RIGHT UPPER EXTREMITY PICC PLACEMENT: History: Sepsis. FINDINGS: After explaining the procedure and answering all questions, the right upper extremity prepped and abby ped in the usual sterile fashion. Sterile technique, buffered local anesthesia, sonographic guidance and a 22 gauge needle were used to carefully access the right brachial vein. Standard technique was t hen used to place the tip of a 5 Arabic single lumen PICC so that the tip lies at the level of the jeffries perior vena cava. Catheter was flushed and secured externally. Fluoro time = 0 seconds. IMPRESSION: Technically successful right upper extremity PICC placement. Catheter is now ready for use. POS: [facility]
[2017-09-11] MEDS: Insulin Regular 300 UNITS/3 ML VIAL SC PRN ×2 (11:37→21:58)
[2017-09-11] MEDS: cefTRIAXone\\ROCEPHIN 1 GM, Syringe 0.4 ML in Sterile Water 9.6 ML SLOW IVP SCH (14:06)
[2017-09-11] MEDS ORDERED: Heparin 1,000 UNITS/ML VIAL ONE (15:47)
[2017-09-11] MEDS ORDERED: ISOVUE-370 76%-LOCM 1 ML ONE (16:39)
[2017-09-12] MEDS: Insulin Regular 300 UNITS/3 ML VIAL SC PRN ×3 (00:47→20:21)
[2017-09-12] MEDS: Sodium Chloride 0.45% 1,000 ML IV SCH ×3 (00:47→19:12)
[2017-09-12 08:10] LABS: Vancomycin, Trough 9.4 ug/mL
--- NOTE | 2017-09-12 08:22 | PRG ---
DATE OF SERVICE: 09/12/2017 SUBJECTVE: The patient had a good night. He is not as confused as he was. He has family at the bed side. He had a CT scan secondary to worsening confusion and this was unremarkable. He also had a si nus CT to try to find out the source of his fever. He was found to have left maxillary sinusitis. PHYSICAL EXAMINATION: GENERAL: On evaluation, he is awake. He is somewhat alert. His family is at bedside. VITAL SIGNS: Blood pressure is 214/102 ?, pulse 80, respirations 18. He is afebrile. NECK: Supple with no increased JVP or carotid bruit. Carotid had good upstroke with no thyromegaly. COR: Regular rate and rhythm. CHEST: Symmetrical. Clear to auscultation and percussion. ABDOMEN: Soft, nontender with normoactive bowel sounds. There is no bruit or organomegaly. EXTREMITIES: No edema or cyanosis. He had palpable pedal pulses. SKIN: There is no evidence of ulcer, lesion or rash. NEUROLOGIC: He is awake, but slightly confused. LABORATORY: There is no lab in the chart. ASSESSMENT: 1. Hypertension. 2. Dementia. 3. Diabetes. 4. Bacteremia. 5. Sinusitis. 6. Diabetes. PLAN: 1. The patient will be given his morning meds right now. Will also have an order for clonidine p.r. n. as needed. We will wait for the echocardiogram to make sure no endocarditis. 2. We will continue antibiotics. 3. We will wait for placement and once has placement, we will transfer to there for IV antibiotics f or 2 weeks. 4. All questions answered to all 6 family members in the room and all verbalized understanding.
[2017-09-12] MEDS: Ondansetron HCl/PF 4 MG/2 ML Vial SLOW IVP PRN (08:35)
[2017-09-12] MEDS: metFORMIN 500 MG TAB PO SCH ×2 (08:39→16:02)
[2017-09-12] MEDS: Pantoprazole 40 MG VIAL IVP SCH ×3 (08:39→20:03)
[2017-09-12] MEDS: Carvedilol 25 MG TAB PO SCH ×3 (08:39→20:12)
[2017-09-12] MEDS: Gabapentin 400 MG CAP PO SCH ×3 (08:39→20:03)
[2017-09-12] MEDS: Famotidine 20 MG TAB PO SCH (08:40)
[2017-09-12] MEDS: Lisinopril 20 MG TAB PO SCH (08:41)
[2017-09-12] MEDS: Vancomycin HCl 750 MG in Sodium Chloride 0.9% 250 ML 250 ML IVPB SCH ×2 (10:04→20:03)
[2017-09-12] MEDS: cefTRIAXone\\ROCEPHIN 1 GM, Syringe 0.4 ML in Sterile Water 9.6 ML SLOW IVP SCH (12:13)
[2017-09-12] MEDS: cloNIDine 0.1 MG TAB PO PRN (12:14)
[2017-09-12] MEDS: hydrALAZINE 20 MG/ML VIAL SLOW IVP PRN ×2 (13:24→17:30)
[2017-09-12] MEDS ORDERED: Sucralfate 1 GM TAB PO SCH (14:00)
[2017-09-12] MEDS: Sucralfate 1 GM TAB PO SCH ×2 (16:01→20:03)
[2017-09-12] MEDS: Ondansetron HCl/PF 4 MG/2 ML Vial SLOW IVP SCH ×3 (16:02→23:59)
--- NOTE | 2017-09-12 19:59 | PRG ---
DATE OF SERVICE: 09/12/2017 This is EDISON Jimenez dictating for Myron Muñoz M.D. This morning when I rounded, the patient's blood pressure was noted to be over 200. I pulled the sagar se aside and gave her specific orders what to do as I had a prior incident as nurse not reporting hig h blood pressure and later the patient went into respiratory arrest and a Code Green was called. The nurse assured me she is going to be given medication appropriately and take over from there. I did get a call from the nurse at 12:50 that says patient's blood pressures are over 200. I then asked he r how the patient's blood pressure was after I left, she said after I left, she gave his morning medi cations. She then checked his blood pressure at 10. In the morning, his blood pressure was still hi gh, so she gave the clonidine as ordered. Unfortunately, he threw up. So she did wait now three mario rs later to call me with blood pressures that have been high all day. I then became very irritated. I have asked to speak with the charge nurse. The charge nurse got the phone and I explained to her that nurses there does have a lot of issues going on with this hospital about nurse is not reporting high blood pressures accordingly and not taking it very serious that a patient could have a stroke. I told her I want an instant report written out on this new nurse. She was also going to talk to the nurse. I also talked I will be talking to administration as this patient is mary they have not had a stroke yet. There was new orders given for hydralazine and to check the blood pressure every sing le hour until the blood pressure normalized. Charge nurse verbalized understanding and all questions answered to satisfaction.
[2017-09-13] MEDS: Insulin Regular 300 UNITS/3 ML VIAL SC PRN ×4 (00:52→20:26)
[2017-09-13] MEDS: Sodium Chloride 0.45% 1,000 ML IV SCH ×3 (05:00→15:36)
[2017-09-13] MEDS: Ondansetron HCl/PF 4 MG/2 ML Vial SLOW IVP SCH ×5 (05:04→20:26)
[2017-09-13 05:31] LABS: #Basophils 0.1 thou/uL (0.0-0.2); #Eosinphils 0.1 thou/uL (0.0-0.7); #Lymphocytes 2.4 thou/uL (1.20-3.40); #Neutrophils 9.3 thou/uL (1.40-6.50); %Basophils 0.9 % (0.0-1.0); %Eosinophils 1.1 % (0.0-10.0); %Lymphocytes 18.3 % (21.0-51.0); %Monocytes 7.7 % (0.0-10.0); %Neutrophils 72.1 % (42.0-75.0); Hemoglobin 14.8 g/dL (14.0-18.0); Mean Corpuscular HGB CONC 30.8 g/dL (32.0-36.0); Mean Corpuscular Hemoglobin 25.5 pg (27.0-31.0); Mean Corpuscular Volume 82.9 fl (80.0-94.0); Mean Platelet Volume 7.2 fL (7.4-10.4); Platelet Count 432 thou/uL (130-400); RBC Distribution Width 17.4 % (11.5-14.5); White Blood Cell (WBC) Count 12.9 thou/uL (4.8-10.8)
[2017-09-13 05:43] LABS: ALT (SGPT) 17 U/L (8-55); AST (SGOT) 21 U/L (5-34); Albumin 3.1 g/dL (3.4-4.8); Alkaline Phosphatase 100 U/L (40-150); Anion Gap 10 mmol/L (10-20); BUN (Urea Nitrogen) 28 mg/dL (8.4-25.7); Bilirubin, Total 0.6 mg/dL (0.2-1.2); Calc. Creatinine Clearance 49 mL/min (70-130); Calcium 8.2 mg/dL (7.8-10.44); Carbon Dioxide 25 mmol/L (23-31); Chloride 99 mmol/L (98-107); Estimated GFR-MDRD 51; Globulin 2.6 g/dL (2.4-3.5); Glucose 200 mg/dL (83-110); Potassium 3.3 mmol/L (3.5-5.1); Protein, Total 5.7 g/dL (5.8-8.1); Sodium 131 mmol/L (136-145)
[2017-09-13] MEDS: Gabapentin 400 MG CAP PO SCH ×3 (08:16→20:25)
[2017-09-13] MEDS: Sucralfate 1 GM TAB PO SCH ×4 (08:16→20:25)
[2017-09-13] MEDS: Pantoprazole 40 MG VIAL IVP SCH ×3 (08:17→20:26)
[2017-09-13] MEDS: metFORMIN 500 MG TAB PO SCH ×2 (08:17→16:30)
[2017-09-13] MEDS: Carvedilol 25 MG TAB PO SCH ×2 (08:17→20:25)
[2017-09-13] MEDS: Famotidine 20 MG TAB PO SCH (08:18)
[2017-09-13] MEDS: Vancomycin HCl 750 MG in Sodium Chloride 0.9% 250 ML 250 ML IVPB SCH ×2 (08:18→20:26)
[2017-09-13] MEDS: Lisinopril 20 MG TAB PO SCH (08:18)
[2017-09-13] MEDS: cefTRIAXone\\ROCEPHIN 1 GM, Syringe 0.4 ML in Sterile Water 9.6 ML SLOW IVP SCH (11:25)
--- NOTE | 2017-09-13 11:42 | PRG ---
DATE OF SERVICE: 09/13/2017 SUBJECTIVE: The patient had a good night according to the sitter. He has no more nausea or vomiting . His blood pressure is better controlled. He is awake. He is less confused. Upon evaluation, he is awake. He has got a sitter at bedside. OBJECTIVE: VITAL SIGNS: His blood pressure is 100/60, pulse 70, respiration rate 18. He is afebrile. NECK: Supple with no increased JVP or carotid bruit. Carotid had good upstroke with no thyromegaly. COR: Regular rate and rhythm. CHEST: Symmetrical. Clear to auscultation and percussion. ABDOMEN: Soft and nontender with normoactive bowel sounds. No bruit or organomegaly. EXTREMITIES: No edema or cyanosis. Palpable pedal pulses. SKIN: There is no evidence of ulcer, lesion, or rash. NEUROLOGIC: He is awake and slightly confused. ASSESSMENT: 1. Bacteremia. 2. Sinusitis. 3. Dementia. 4. Hypertension. 5. Erosive gastritis. PLAN: I do not see for some reason a peak and trough in here from the vancomycin even though it was written out as an order for pharmacy to do a peak and trough. We will order peak and trough and tracii n ask pharmacy to dose. We will also hold his blood pressure medication for heart rate less than 60 and blood pressure less than 100. We will also discontinue Ativan. We will also follow up with lab in the morning.
[2017-09-13 20:11] LABS: Vancomycin, Trough 17.3 ug/mL
[2017-09-14] MEDS: Sodium Chloride 0.45% 1,000 ML IV SCH ×4 (00:06→23:26)
[2017-09-14] MEDS: Ondansetron HCl/PF 4 MG/2 ML Vial SLOW IVP SCH ×7 (01:37→20:57)
[2017-09-14] MEDS: Enalaprilat Dihydrate 1.25 MG/ML VIAL SLOW IVP PRN (05:02)
[2017-09-14 05:23] LABS: #Basophils 0.1 thou/uL (0.0-0.2); #Eosinphils 0.5 thou/uL (0.0-0.7); #Lymphocytes 1.8 thou/uL (1.20-3.40); #Monocytes 0.8 thou/uL (0.11-0.59); %Basophils 0.7 % (0.0-1.0); %Eosinophils 3.9 % (0.0-10.0); %Lymphocytes 13.5 % (21.0-51.0); %Monocytes 5.9 % (0.0-10.0); %Neutrophils 76.1 % (42.0-75.0); Hemoglobin 15.5 g/dL (14.0-18.0); Mean Corpuscular HGB CONC 31.9 g/dL (32.0-36.0); Mean Corpuscular Hemoglobin 26.6 pg (27.0-31.0); Mean Corpuscular Volume 83.5 fl (80.0-94.0); Mean Platelet Volume 7.4 fL (7.4-10.4); Platelet Count 444 thou/uL (130-400); RBC Distribution Width 17.5 % (11.5-14.5); Red Blood Cell (RBC) Count 5.83 mill/uL (4.70-6.10); White Blood Cell (WBC) Count 13.1 thou/uL (4.8-10.8)
[2017-09-14] MEDS: Insulin Regular 300 UNITS/3 ML VIAL SC PRN ×2 (05:35→12:25)
[2017-09-14 05:52] LABS: ALT (SGPT) 18 U/L (8-55); AST (SGOT) 27 U/L (5-34); Albumin 3.3 g/dL (3.4-4.8); Alkaline Phosphatase 107 U/L (40-150); Anion Gap 18 mmol/L (10-20); BUN (Urea Nitrogen) 22 mg/dL (8.4-25.7); Bilirubin, Total 0.7 mg/dL (0.2-1.2); Calc. Creatinine Clearance 54 mL/min (70-130); Calcium 8.3 mg/dL (7.8-10.44); Carbon Dioxide 19 mmol/L (23-31); Chloride 98 mmol/L (98-107); Estimated GFR-MDRD 67; Globulin 3.2 g/dL (2.4-3.5); Glucose 197 mg/dL (83-110); Potassium 3.6 mmol/L (3.5-5.1); Protein, Total 6.5 g/dL (5.8-8.1); Sodium 131 mmol/L (136-145)
[2017-09-14] MEDS: Labetalol HCl 100 MG/20 ML VIAL SLOW IVP PRN ×3 (06:25→09:31)
[2017-09-14] MEDS: Ondansetron HCl/PF 4 MG/2 ML Vial SLOW IVP PRN (08:05)
[2017-09-14] MEDS ORDERED: Fentanyl 100 MCG/2 ML VIAL SLOW IVP PRN (08:37)
[2017-09-14] MEDS ORDERED: Milk Of Magnesia 30 ML UDCUP PO SCH (08:45)
[2017-09-14] MEDS: Vancomycin HCl 750 MG in Sodium Chloride 0.9% 250 ML 250 ML IVPB SCH ×2 (09:28→20:59)
[2017-09-14] MEDS: Pantoprazole 40 MG VIAL IVP SCH ×2 (09:28→22:05)
[2017-09-14] MEDS: Famotidine 20 MG TAB PO SCH (10:37)
[2017-09-14] MEDS: Carvedilol 25 MG TAB PO SCH ×2 (10:37→20:58)
[2017-09-14] MEDS: metFORMIN 500 MG TAB PO SCH ×2 (10:37→17:31)
[2017-09-14] MEDS: Gabapentin 400 MG CAP PO SCH ×3 (10:37→20:57)
[2017-09-14] MEDS: Sucralfate 1 GM TAB PO SCH ×4 (10:37→20:57)
[2017-09-14] MEDS: hydrALAZINE 25 MG TAB PO SCH ×3 (10:38→20:58)
[2017-09-14] MEDS: Lisinopril 20 MG TAB PO SCH ×2 (10:38→20:58)
[2017-09-14] MEDS ORDERED: Ketorolac Tromethamine 30 MG/ML VIAL IVP SCH (12:15)
[2017-09-14] MEDS: cefTRIAXone\\ROCEPHIN 1 GM, Syringe 0.4 ML in Sterile Water 9.6 ML SLOW IVP SCH (12:24)
--- NOTE | 2017-09-14 13:44 | ULT ---
RENAL ULTRASOUND WITH DOPPLER: HISTORY: Renal artery stenosis. COMPARISON: None. TECHNIQUE: Cortés-scale, color-flow, and Doppler imaging with spectral wave-form analysis was performed of the [facility]. FINDINGS: RIGHT KIDNEY: Limited evaluation of the cortex due to shadowing. No definite hydronephrosis. The r ight kidney measures 5.4 x 5.9 x 11.4 cm. LEFT KIDNEY: No obvious cortical masses. No hydronephrosis. The left kidney measures 6.1 x 10.5 x 5.1 cm. RENAL DOPPLER: Aorta: 29.8 cm per second Right renal artery: 70 cm per second Left renal artery: 70 cm per second Right renal artery to aorta ratio: 2.4 Left renal artery to aorta ratio: 2.4 Right renal arcuate artery resistive index: 0.77 Left renal arcuate artery resistive index: 0.68 IMPRESSION: 1. Medical renal disease involving the right kidney. 2. Renal artery to aorta ratios that are slightly elevated but less than three. If there is concern , consider CT angiogram of the renal arteries for better evaluation. POS: MEGAN
--- NOTE | 2017-09-14 13:46 | PRG ---
DATE OF SERVICE: 09/14/2017 GASTROINTESTINAL INPATIENT NOTE SUBJECTIVE: I was called back by Dr. Muñoz this morning regarding Mr. Sahu. He remains in the hospital. He has continued to have some issues with intermittent nausea and vomiting, though this angeles s improved. He remains on a PPI. This morning, Mr. Sahu was complaining of significant pain in the pelvis and lower back. He never had a colonoscopy. This lower back and lower abdominal pain is something that has also been intermittent for a while. The patient denies any significant constipat ion or any rectal bleeding. PHYSICAL EXAMINATION: VITAL SIGNS: Temperature 97.8, pulse 78, blood pressure right now is 127/78, oxygen saturation 98% o n room air. GENERAL: No acute distress. HEART: Regular rate and rhythm. LUNGS: Clear to auscultation bilaterally. ABDOMEN: Bowel sounds present, soft and nontender to palpation throughout including the lower abdome n. No guarding, rebound tenderness. EXTREMITIES: No peripheral edema. LABORATORY STUDIES: WBC 13.1, hemoglobin 15.5, platelets 444, sodium 131, potassium 3.6, BUN 22, cre atinine 1.08. LFTs normal. Blood culture from last week grew out presumptive corynebacterium. ASSESSMENT AND PLAN: 1. Lower abdominal pain and lower back pain. Dr. Muñoz has asked us to consider performing a diagno stic colonoscopy. The patient has never had a prior colonoscopy, and this is certainly reasonable. This will serve as investigation of his intermittently recurring lower abdominal and lower back pain. 2. Erosive gastritis. The patient is doing better with this from a symptomatic perspective on a PPI , which should be continued. Further recommendations following colonoscopy tomorrow. Please call back any time with questions or concerns.
--- NOTE | 2017-09-14 16:07 | NM ---
EXAM: NUCLEAR MEDICINE WHOLE BODY BONE SCAN: HISTORY: Fever of unknown origin. COMPARISON: None. CORRELATION: Abdomen and pelvic CT 09/09/17. TECHNIQUE: The patient was administered 30.20 mCi of Technetium 99m MDP intravenously. After appropriate delay, whole body imaging was performed. FINDINGS: Expected distribution of radiotracer. There are degenerative changes in both shoulders and the left knee. Focal area of increased uptake involving the anterior left 7th rib at the costochondral juncti on likely due to degenerative change. No evidence of metastases or fracture. There is symmetric excretion to the kidneys. There is extensive radiotracer localized in a distended urinary bladder. There is also evidence of urinary contamination. The patient is wearing a diaper. Minimal sinus disease is noted. IMPRESSION: Incidental findings as above. The patient appears to have a distended urinary bladder. Evaluate for possible bladder outlet syndrome with pre- and post-void ultrasound imaging. POS: MEGAN
[2017-09-14] MEDS ORDERED: Acetaminophen 1,000 MG in Premix Bag 1 BAG IVPB PRN (16:58)
--- NOTE | 2017-09-14 17:42 | PDOC.EVN ---
Event Note - Event Note Event Note: I was asked to assume care for the patient. Patient chart reviewed Patient seen and examined with daughter Charmaine at bedside. Case discussed with Dr. Mckinnon (GI) at bedside No new changes to plan at this point in time as patient is hemodynamically stable, pain free, and tolerating a clear liquid diet.
[2017-09-14] MEDS ORDERED: Acetaminophen 1,000 MG in Premix Bag 1 BAG IVPB SCH (18:00)
[2017-09-14] MEDS ORDERED: GoLYTELY 4,000 ml Bottle PO SCH (18:00)
[2017-09-15] MEDS: Ondansetron HCl/PF 4 MG/2 ML Vial SLOW IVP SCH ×5 (00:20→10:40)
[2017-09-15 05:06] LABS: #Basophils 0.1 thou/uL (0.0-0.2); #Eosinphils 0.4 thou/uL (0.0-0.7); #Lymphocytes 1.3 thou/uL (1.20-3.40); #Monocytes 0.6 thou/uL (0.11-0.59); #Neutrophils 6.6 thou/uL (1.40-6.50); %Basophils 1.1 % (0.0-1.0); %Lymphocytes 14.3 % (21.0-51.0); %Neutrophils 73.6 % (42.0-75.0); Hemoglobin 14.3 g/dL (14.0-18.0); Mean Corpuscular HGB CONC 30.8 g/dL (32.0-36.0); Mean Corpuscular Hemoglobin 25.6 pg (27.0-31.0); Mean Corpuscular Volume 83.2 fl (80.0-94.0); Mean Platelet Volume 7.2 fL (7.4-10.4); Platelet Count 393 thou/uL (130-400); RBC Distribution Width 17.1 % (11.5-14.5); Red Blood Cell (RBC) Count 5.59 mill/uL (4.70-6.10); White Blood Cell (WBC) Count 8.9 thou/uL (4.8-10.8)
[2017-09-15 05:24] LABS: Anion Gap 15 mmol/L (10-20); BUN (Urea Nitrogen) 16 mg/dL (8.4-25.7); Calc. Creatinine Clearance 65 mL/min (70-130); Calcium 7.9 mg/dL (7.8-10.44); Carbon Dioxide 23 mmol/L (23-31); Chloride 99 mmol/L (98-107); Estimated GFR-MDRD 79; Glucose 258 mg/dL (83-110); Potassium 3.2 mmol/L (3.5-5.1); Sodium 134 mmol/L (136-145)
[2017-09-15] MEDS ORDERED: Potassium Chloride 20 MEQ TAB PO SCH (07:45)
[2017-09-15] MEDS ORDERED: Ondansetron HCl/PF 4 MG/2 ML Vial IVP PRN (09:13)
[2017-09-15] MEDS ORDERED: Promethazine HCl 25 MG/ML VIAL SLOW IVP PRN (09:13)
[2017-09-15] MEDS ORDERED: Promethazine HCl 25 MG/ML VIAL IM PRN (09:13)
[2017-09-15] MEDS: Vancomycin HCl 750 MG in Sodium Chloride 0.9% 250 ML 250 ML IVPB SCH (10:06)
[2017-09-15] MEDS: Pantoprazole 40 MG VIAL IVP SCH ×2 (10:08→21:34)
[2017-09-15] MEDS: Sucralfate 1 GM TAB PO SCH ×4 (10:09→21:34)
[2017-09-15] MEDS: metFORMIN 500 MG TAB PO SCH ×2 (10:09→16:52)
[2017-09-15] MEDS: hydrALAZINE 25 MG TAB PO SCH ×3 (10:10→21:32)
[2017-09-15] MEDS: Famotidine 20 MG TAB PO SCH (10:10)
[2017-09-15] MEDS: Gabapentin 400 MG CAP PO SCH ×3 (10:11→21:32)
[2017-09-15] MEDS: Lisinopril 20 MG TAB PO SCH ×2 (10:11→21:33)
[2017-09-15] MEDS: Carvedilol 25 MG TAB PO SCH ×2 (10:12→21:32)
[2017-09-15] MEDS: Sodium Chloride 0.45% 1,000 ML IV SCH ×2 (10:24→16:43)
[2017-09-15] MEDS: cefTRIAXone\\ROCEPHIN 1 GM, Syringe 0.4 ML in Sterile Water 9.6 ML SLOW IVP SCH (10:39)
--- NOTE | 2017-09-15 11:01 | OP ---
DATE OF PROCEDURE: 09/15/2017 PROCEDURE: Colonoscopy. PREOPERATIVE DIAGNOSIS: Lower abdominal pain. Prior to the procedure, abdominal exam revealed a dis tended firm lower abdomen consistent with a large bladder. The patient voided and then postvoid blad tony scan showed a significant amount of retained urine in the bladder. A Estrada catheter was placed i n a little over a liter of urine was immediately returned. DESCRIPTION OF PROCEDURE: Informed consent was obtained from the patient. He was sedated with total intravenous anesthesia. The rectal exam was performed and was normal. The colonoscope was advanced to the terminal ileum without difficulty. The preparation quality was good. The mucosa of the term inal ileum was normal. The ileocecal valve and appendiceal orifice were clearly identified. There w ere scattered small diverticula through the transverse, descending, and sigmoid colon. The remainder of the colonic mucosa was normal. Retroflexed views in the rectum were normal. IMPRESSION: 1. Mild diverticulosis of the transverse, descending, and sigmoid colon. 2. Otherwise normal ileocolonoscopy. 3. Urinary retention. This may have been the source of his lower abdominal and back pain. RECOMMENDATIONS: 1. The Estrada catheter will be left in place for now with further evaluation per the primary service. 2. I will sign off. Please call if GI can be of assistance.
[2017-09-15] MEDS ORDERED: Ondansetron HCl/PF 4 MG/2 ML Vial SLOW IVP PRN (11:33)
[2017-09-15] MEDS ORDERED: Lidocaine 1% PF 5 ML VIAL ONE (12:33)
--- NOTE | 2017-09-15 13:43 | ULT ---
RENAL ULTRASOUND WITH DOPPLER: HISTORY: Renal artery stenosis. COMPARISON: None. TECHNIQUE: Cortés-scale, color-flow, and Doppler imaging with spectral wave-form analysis was performed of the [facility]. FINDINGS: RIGHT KIDNEY: Limited evaluation of the cortex due to shadowing. No definite hydronephrosis. The r ight kidney measures 5.4 x 5.9 x 11.4 cm. LEFT KIDNEY: No obvious cortical masses. No hydronephrosis. The left kidney measures 6.1 x 10.5 x 5.1 cm. RENAL DOPPLER: Aorta: 29.8 cm per second Right renal artery: 70 cm per second Left renal artery: 70 cm per second Right renal artery to aorta ratio: 2.4 Left renal artery to aorta ratio: 2.4 Right renal arcuate artery resistive index: 0.77 Left renal arcuate artery resistive index: 0.68 IMPRESSION: 1. Medical renal disease involving the right kidney. 2. Renal artery to aorta ratios that are slightly elevated but less than three. If there is concern , consider CT angiogram of the renal arteries for better evaluation.
[2017-09-15] MEDS: Insulin Regular 300 UNITS/3 ML VIAL SC PRN (18:39)
[2017-09-15] MEDS: Refresh (Polyvinyl Alcohol 1.4%/Povidone 0.6%) Opth Drops EA EYE SCH (18:45)
--- NOTE | 2017-09-15 19:15 | PDOC.PN ---
- Subjective Encounter Start Date: 09/15/17 Encounter Start Time: 14:00 Subjective: nsg notes rev, jimmie ovn, pt seen in room with PT translating nepali -: pt no c/o, feels well, ambulated with PT no difficulty, no pain, no RENEE, -: no dizziness - Objective Vital Signs & Weight: Vital Signs (12 hours) Temp Pulse Pulse Pulse Resp BP BP 09/15/17 16:47 75 09/15/17 16:00 97.9 F 79 20 09/15/17 14:00 77 79 156/70 H 09/15/17 12:00 97.5 F L 75 20 09/15/17 10:11 143/65 H 09/15/17 10:10 73 09/15/17 08:00 97.9 F 73 18 BP BP Pulse Ox 09/15/17 16:47 09/15/17 16:00 144/61 H 97 09/15/17 14:00 137/65 09/15/17 12:00 149/92 H 99 09/15/17 10:11 09/15/17 10:10 09/15/17 08:00 Weight Admit Weight 130 lb 9.6 oz Weight 144 lb 14.4 oz I&O: 09/14/17 09/15/17 09/16/17 06:59 06:59 06:59 Intake Total 3524 5715 1200 Output Total 1700 Balance 3524 5715 -500 Result Diagrams: 09/15/17 04:48 09/15/17 04:48 Additional Labs: Accuchecks 09/15/17 09/15/17 09/15/17 18:35 10:48 05:44 POC Glucose 286 H 212 H 213 H 09/14/17 21:19 POC Glucose 265 H Phys Exam - Physical Examination Constitutional: NAD HEENT: PERRLA, moist MMs, sclera anicteric Neck: no nodes, no JVD, supple Respiratory: no wheezing, no rales, no rhonchi, clear to auscultation bilateral Cardiovascular: RRR, no rub 3/5 ANDRIA which is indicated as "old" by the patient. no splinter hemorrhages Gastrointestinal: soft, non-tender, no distention, positive bowel sounds Musculoskeletal: no edema, pulses present Neurological: moves all 4 limbs Psychiatric: normal affect, A&O x 3 Skin: no rash, normal turgor, cap refill <2 seconds Dx/Plan (1) Hypotension Status: Acute (2) Metabolic encephalopathy Code(s): G93.41 - METABOLIC ENCEPHALOPATHY Status: Acute (3) Abdominal pain Code(s): R10.9 - UNSPECIFIED ABDOMINAL PAIN Status: Acute (4) Hypothermia Code(s): T68.XXXA - HYPOTHERMIA, INITIAL ENCOUNTER Status: Acute (5) Positive blood culture Code(s): R78.81 - BACTEREMIA Status: Acute - Plan cont current plan of care, continue antibiotics, PT/OT, 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 Please see original H&P and prior progress notes for full details. It appears that the patient has since significantly improved in all aspects and currently has stable hemodynamics is tolerating diet without pain and able to ambulate with return to baseline mentation. Evaluation so far as demonstrated predominately 1/2 blood culture positivity with Cornyebacterium sp for which the ptaient is currently on IV ceftriaxone. No originating site has been discovered so far. I am requesting infectious diseases consultation for further evaluation and treatment duration and follow-up recommendations for this gentleman. Also wondering if it may be advisable for him to undergo a CHELSEA in addition to the TTE due to additional risk factors of pacemaker presence and prominent murmur (supposedly not new). On the other hand, he has symptomatically improved and there is no current reason to suspect continued bacteremia. In the meanwhile, we will continue the current regimen with supportive care and consider initiating discharge planning if he has continued stability. Diet: baseline activity: PT/ OT, as tolerated encourage Review of Systems - Medications/Allergies Allergies/Adverse Reactions: Allergies Allergy/AdvReac Type Severity Reaction Status Date / Time No Known Drug Allergies Allergy Verified 07/16/17 16:13 Medications: Current Medications Acetaminophen (Tylenol) 650 mg PO Q6H PRN PRN Reason: Pain Last Admin: 09/15/17 10:24 Dose: 650 mg Carvedilol (Coreg) 25 mg PO BID KENIA Last Admin: 09/15/17 10:12 Dose: 25 mg Clonidine (Catapres) 0.1 mg PO Q3H PRN PRN Reason: SBP > 170/90 Last Admin: 09/12/17 12:14 Dose: 0.1 mg Dextrose/Water (Dextrose 50%) 25 gm IVP PRN PRN PRN Reason: HYPOGLYCEMIA PROTOCOL Enalaprilat (Vasotec) 1.25 mg SLOW IVP Q6H PRN PRN Reason: SBP>180 Last Admin: 09/14/17 05:02 Dose: 1.25 mg Famotidine (Pepcid) 20 mg PO DAILY [facility] Last Admin: 09/15/17 10:10 Dose: 20 mg Fentanyl (Sublimaze) 100 mcg SLOW IVP Q3H PRN PRN Reason: Pain Last Admin: 09/14/17 08:55 Dose: 100 mcg Gabapentin (Neurontin) 800 mg PO TID [facility] Last Admin: 09/15/17 16:47 Dose: 800 mg Glucagon (Glucagon) 1 mg IM PRN PRN PRN Reason: HYPOGLYCEMIA PROTOCOL Haloperidol Lactate (Haldol) 5 mg SLOW IVP Q2H PRN PRN Reason: SEVERE Agitation Last Admin: 09/07/17 13:18 Dose: 5 mg Hydralazine HCl (Apresoline) 10 mg SLOW IVP Q3H PRN PRN Reason: SBP>160 Last Admin: 09/12/17 17:30 Dose: 10 mg Hydralazine HCl (Apresoline) 50 mg PO TID [facility] Last Admin: 09/15/17 16:47 Dose: 50 mg Dextrose/Water (D5w) 1,000 mls @ 0 mls/hr IV INF PRN; As Directed PRN Reason: HYPOGLYCEMIA PROTOCOL Insulin Human Regular (Humulin R) 0 units SC .MODERATE SLIDING SC PRN; Protocol PRN Reason: MODERATE SLIDING SCALE Last Admin: 09/15/17 18:39 Dose: 6 unit Labetalol HCl (Normodyne) 20 mg SLOW IVP Q30M PRN PRN Reason: SBP>180 Last Admin: 09/14/17 09:31 Dose: 20 mg Lisinopril (Zestril) 20 mg PO BID [facility] Last Admin: 09/15/17 10:11 Dose: 20 mg [facility] Last Admin: 09/15/17 16:52 Dose: 1,000 mg Miscellaneous Medication (Pharmacy To Dose) 1 each IVPB PRN PRN PRN Reason: Pharmacy to dose Ondansetron HCl (Zofran) 4 mg SLOW IVP Q4HR PRN PRN Reason: Nausea Pantoprazole Sodium (Protonix) 40 mg IVP BID [facility] Last Admin: 09/15/17 10:08 Dose: 40 mg Polyvinyl Alcohol/Povidone (Refresh Classic Eye Drops) 0 each EA EYE Q6HR [facility] Last Admin: 09/15/17 18:45 Dose: 1 each Sodium Chloride (Flush - Normal Saline) 10 ml IV Q12HR [facility] Last Admin: 09/15/17 07:54 Dose: Not Given Sucralfate (Carafate) 1 gm PO ACHS [facility] Last Admin: 09/15/17 16:52 Dose: 1 gm
--- NOTE | 2017-09-15 23:57 | CON ---
DATE OF CONSULTATION: 09/15/2017 REASON FOR CONSULTATION: Bacteremia. HISTORY OF PRESENT ILLNESS: A 71-year-old patient with history of coronary artery disease with ische parisa cardiomyopathy and prior to pacemaker placement, type 2 diabetes mellitus and hypertension, who h as 1 previous admission to this hospital in 06/2017 when he presented with protracted nausea, vomitin g, and abdominal pain. The patient had an EGD, which showed a Fransisca-Gillis tear in the GE junction, there was noticeable urinary retention and he was given Flomax and a Estrada was inserted. The Estrada eventually was removed and abdomen and pelvis CT did not show any significant abnormalities. At this time, he developed delirium with altered mental status. He was found by a roommate or a neighbor se verely confused. EMS was activated and his blood sugar was noticed to be in the 40s. He was given 1 amp of D50 without improvement and he was given another amp of D50 in the emergency room. He was ve ry agitated and confused in the emergency room and had been given Ativan and Haldol to control his co mbative behavior. He was noticed to be incontinent. His initial temperature was 94.6, rectal, O2 sa t 98%, pulse 71 and BP was 130/95. Lung and heart exam were described as normal. Abdomen was descri bed as nontender. Initial impression was hypoglycemia, hypothermia, metabolic encephalopathy, sy ia and leukocytosis. Initial white cell count 17.9 with a predominance of mature neutrophils and rebeca telets 530. Initial Chemistry with a sodium of 137, potassium 4.3, CO2 of 27, creatinine 0.7, AST 39 and CK was 334. Troponin 0.012 and albumin 4.4. Urinalysis with no wbcs. Imaging studies include an abdomen and pelvis CT with no acute intra-abdominal pelvic abnormality and a CT paranasal sinuses with evidence of left maxillary sinusitis. The patient has had 4 sets of blood cultures, which have been negative final results and negative urine culture as well. The patient has remained afebrile th rough the hospital course. The patient has had a bone scan on 09/14, which showed again a distended urinary bladder. The patient had an abdomen and pelvis ultrasound with Doppler and this was not ania rkable. Currently, he is receiving vancomycin, ceftriaxone, Coreg, Catapres, dextrose, Vasotec, Pepc id, Sublimaze p.r.n., gabapentin, Haldol, Apresoline, insulin, Normodyne, lisinopril, metformin and s ucralfate. Mr. Sahu is awake, sitting in bed after having finished his dinner. He ate pretty m uch 100% of his dinner plate. He speaks [place] fluently. He is oriented. He denies any headaches. He has a little bit of burning sensation in the eyes. No sore throat, odynophagia or dysphagia. N o cough or sputum production or chest pain. No abdominal pain, no diarrhea. No joint symptoms. He does not recall the events surrounding the clinical changes that led to his admission. Previously, rianna hampton does remember problems with urination the days before the decompensation. PAST MEDICAL HISTORY: Includes coronary artery disease with cardiomyopathy, pacemaker, hypertension, anxiety and osteoarthritis. PAST SURGICAL HISTORY: Carpal tunnel surgery. SOCIAL HISTORY: He told me, he lives alone in [place], and he has family members around. He has Boracci rs, sometimes the family will bring food and sometimes he has to go out to purchase groceries and he still drives. He is a former smoker, does not drink or use other drugs. ALLERGIES: NONE. MEDICATION: Has been listed above. FAMILY HISTORY: Noncontributory. PHYSICAL EXAMINATION: VITAL SIGNS: With a temperature 97.9 and BP 140/61. SKIN: Shows no areas of skin breakdown. Peripheral IV access. He has a Estrada catheter in place. N o lymphadenopathy. HEENT: Ocular movements are conjugate. There is some mild conjunctival hyperemia, which is bilatera l. Pupils are 2 mm. Oral cavity is moist, still quite a few teeth in place. NECK: Supple. No jugular venous distention or carotid bruits. LUNGS: With symmetric clear breath sounds. HEART: S1 and S2, regular rate. No S3 or S4. ABDOMEN: Soft, not distended. No bladder distention. GENITOURINARY: No genital abnormalities. EXTREMITIES: No joint inflammatory activity. Pulses are 1+ in dorsalis pedis. He is able to move a ll extremities well. No clonus. NEUROLOGIC: Plantar responses are flexor. He is awake, knows his name and he knows where he is, nam e of the [place] and the date as well. He has some retrograde amnesia regarding the events surrounding the admission. LABORATORY DATA: The latest labs show white cell count down to 8.9, hemoglobin 14 and platelets 393. Creatinine is 0.94, sodium 134 and potassium 3.2. Microbiology with one set with corynebacterium s pecbradly. ASSESSMENT: 1. Ischemic cardiomyopathy with pacemaker. 2. Delirium. 3. Urinary retention. 4. Neutrophilia, which has improved now. 5. Bacteremia secondary to corynebacterium. DISCUSSION: The patient most likely has experienced delirium, multifactorial secondary to a combinat ion of hypoglycemia, decreased oral intake and urinary retention. I believe that the urinary retenti on is the primary underlying process that started vicious cycle of the other events. The corynebacte rium represents contamination of the sample and does not need treatment. I would recommend discontin uation of oral antimicrobial therapy at this point in time. He will have to be discharged with a Fol ey catheter and follow up with urologist for a voiding trial. He may require TURP for permanent reso lution of this problem.
[2017-09-16] MEDS: Refresh (Polyvinyl Alcohol 1.4%/Povidone 0.6%) Opth Drops EA EYE SCH ×5 (01:43→23:13)
[2017-09-16] MEDS: Insulin Regular 300 UNITS/3 ML VIAL SC PRN ×3 (07:00→21:38)
[2017-09-16] MEDS: Famotidine 20 MG TAB PO SCH (08:42)
[2017-09-16] MEDS: metFORMIN 500 MG TAB PO SCH ×2 (08:42→16:47)
[2017-09-16] MEDS: hydrALAZINE 25 MG TAB PO SCH ×3 (08:42→21:37)
[2017-09-16] MEDS: Pantoprazole 40 MG VIAL IVP SCH (08:42)
[2017-09-16] MEDS: Sucralfate 1 GM TAB PO SCH ×4 (08:42→21:36)
[2017-09-16] MEDS: Carvedilol 25 MG TAB PO SCH ×2 (08:42→21:37)
[2017-09-16] MEDS: Lisinopril 20 MG TAB PO SCH ×2 (08:43→21:37)
[2017-09-16] MEDS: Gabapentin 400 MG CAP PO SCH ×3 (08:43→21:37)
[2017-09-16 08:48] VITALS: BMI 25.3
--- NOTE | 2017-09-16 14:25 | PDOC.PN ---
- Subjective Encounter Start Date: 09/16/17 Encounter Start Time: 14:23 Subjective: no new complaints. Reports doing well. - Objective MAR Reviewed: Yes Vital Signs & Weight: Vital Signs (12 hours) Temp Pulse Resp BP BP Pulse Ox 09/16/17 12:00 97.3 F L 62 18 186/78 H 97 09/16/17 08:43 145/63 H 09/16/17 08:42 71 145/63 H 09/16/17 08:00 97.8 F 71 16 145/63 H 96 09/16/17 03:35 98.8 F 71 16 176/79 H 97 Weight Admit Weight 130 lb 9.6 oz Weight 147 lb 12.8 oz I&O: 09/15/17 09/16/17 09/17/17 06:59 06:59 06:59 Intake Total 5715 1440 Output Total 1700 Balance 5715 -260 Result Diagrams: 09/15/17 04:48 09/15/17 04:48 Additional Labs: Accuchecks 09/16/17 09/16/17 09/15/17 10:53 06:09 20:25 POC Glucose 256 H 195 H 223 H 09/15/17 18:35 POC Glucose 286 H Phys Exam - Physical Examination HEENT: PERRLA, moist MMs, sclera anicteric Neck: full ROM Respiratory: no wheezing, no rales, clear to auscultation bilateral Cardiovascular: RRR, no significant murmur, no rub Gastrointestinal: soft, non-tender, no distention, positive bowel sounds Musculoskeletal: no edema Neurological: non-focal Psychiatric: normal affect, A&O x 3 Skin: no rash Dx/Plan (1) HTN (hypertension) Code(s): I10 - ESSENTIAL (PRIMARY) HYPERTENSION Status: Acute Qualifiers: Hypertension type: essential hypertension Qualified Code(s): I10 - Essential (primary) hypertension Plan: Home medications resumed. Monitor BP. (2) Abdominal pain Code(s): R10.9 - UNSPECIFIED ABDOMINAL PAIN Status: Resolved Qualifiers: Abdominal location: generalized Qualified Code(s): R10.84 - Generalized abdominal pain Plan: Resolved. (3) Hypotension Status: Resolved Qualifiers: Hypotension type: unspecified hypotension type Qualified Code(s): I95.9 - Hypotension, unspecified Plan: Resolved. (4) Hypothermia Code(s): T68.XXXA - HYPOTHERMIA, INITIAL ENCOUNTER Status: Acute Qualifiers: Encounter type: subsequent encounter Qualified Code(s): T68.XXXD - Hypothermia, subsequent encounter Plan: Resolving. (5) Metabolic encephalopathy Code(s): G93.41 - METABOLIC ENCEPHALOPATHY Status: Resolved Plan: Resolved. (6) Positive blood culture Code(s): R78.81 - BACTEREMIA Status: Acute Plan: Will get repeat blood cultures. f/u ID recs. Antibiotics discontinued. (7) Type 2 diabetes mellitus with hyperglycemia Code(s): E11.65 - TYPE 2 DIABETES MELLITUS WITH HYPERGLYCEMIA Status: Acute Qualifiers: Diabetes mellitus [facility] insulin use: with [facility] use Qualified Code( s): E11.65 - Type 2 diabetes mellitus with hyperglycemia; Z79.4 - [facility] ( current) use of insulin; Z79.4 - [facility] (current) use of insulin; Z79.4 - terminologist (current) use of insulin; Z79.4 - terminologist (current) use of insulin Plan: Continue metformin, sliding scale insulin. Hypoglycemia precautions. - Plan * .
[2017-09-16] MEDS: Simvastatin 5 MG TAB PO SCH (21:36)
[2017-09-16] MEDS: Terazosin HCl 5 MG CAP PO SCH (21:37)
[2017-09-16] MEDS ORDERED: Acetaminophen 1,000 MG in Premix Bag 1 BAG IVPB PRN (23:59)
[2017-09-17] MEDS: hydrALAZINE 20 MG/ML VIAL SLOW IVP PRN (04:45)
[2017-09-17 05:59] LABS: #Basophils 0.1 thou/uL (0.0-0.2); #Eosinphils 0.4 thou/uL (0.0-0.7); #Lymphocytes 1.6 thou/uL (1.20-3.40); #Monocytes 0.6 thou/uL (0.11-0.59); #Neutrophils 6.1 thou/uL (1.40-6.50); %Basophils 1.3 % (0.0-1.0); %Eosinophils 4.9 % (0.0-10.0); %Lymphocytes 18.3 % (21.0-51.0); %Monocytes 6.9 % (0.0-10.0); %Neutrophils 68.5 % (42.0-75.0); Hemoglobin 13.6 g/dL (14.0-18.0); Mean Corpuscular HGB CONC 31.8 g/dL (32.0-36.0); Mean Corpuscular Hemoglobin 26.7 pg (27.0-31.0); Mean Corpuscular Volume 84.2 fl (80.0-94.0); Mean Platelet Volume 7.4 fL (7.4-10.4); Platelet Count 379 thou/uL (130-400); RBC Distribution Width 17.6 % (11.5-14.5); Red Blood Cell (RBC) Count 5.08 mill/uL (4.70-6.10); White Blood Cell (WBC) Count 8.9 thou/uL (4.8-10.8)
[2017-09-17 06:02] LABS: Anion Gap 9 mmol/L (10-20); BUN (Urea Nitrogen) 8 mg/dL (8.4-25.7); Calc. Creatinine Clearance 81 mL/min (70-130); Calcium 7.9 mg/dL (7.8-10.44); Carbon Dioxide 29 mmol/L (23-31); Chloride 100 mmol/L (98-107); Estimated GFR-MDRD Greater than 90; Glucose 236 mg/dL (83-110); Potassium 3.1 mmol/L (3.5-5.1); Sodium 135 mmol/L (136-145)
[2017-09-17] MEDS: Refresh (Polyvinyl Alcohol 1.4%/Povidone 0.6%) Opth Drops EA EYE SCH ×4 (06:32→18:54)
[2017-09-17] MEDS ORDERED: Amlodipine 5 MG TAB PO SCH (09:00)
[2017-09-17] MEDS ORDERED: Lisinopril 5 MG TAB PO SCH (09:00)
[2017-09-17] MEDS: Sucralfate 1 GM TAB PO SCH ×4 (11:11→20:30)
[2017-09-17] MEDS: Carvedilol 25 MG TAB PO SCH ×2 (11:11→20:29)
[2017-09-17] MEDS: Lisinopril 20 MG TAB PO SCH (11:11)
[2017-09-17] MEDS: Famotidine 20 MG TAB PO SCH (11:12)
[2017-09-17] MEDS: Gabapentin 400 MG CAP PO SCH ×3 (11:12→20:28)
[2017-09-17] MEDS: Potassium Chloride 20 MEQ TAB PO SCH ×2 (11:13→17:11)
[2017-09-17] MEDS: metFORMIN 500 MG TAB PO SCH ×2 (11:13→17:11)
[2017-09-17] MEDS: hydrALAZINE 25 MG TAB PO SCH (11:14)
[2017-09-17] MEDS: Tamsulosin HCl 0.4 MG CAP PO SCH (11:14)
[2017-09-17] MEDS: Insulin Regular 300 UNITS/3 ML VIAL SC PRN (11:23)
--- NOTE | 2017-09-17 14:08 | PDOC.PN ---
- Subjective Encounter Start Date: 09/17/17 Encounter Start Time: 14:06 Subjective: patient c/o numbness/tingling in both hands - Objective MAR Reviewed: Yes Vital Signs & Weight: Vital Signs (12 hours) Temp Pulse Resp BP BP BP Pulse Ox 09/17/17 11:56 98.5 F 73 16 161/72 H 96 09/17/17 11:14 78 161/72 H 09/17/17 11:11 78 161/72 H 09/17/17 08:00 98.5 F 73 16 09/17/17 05:18 78 131/61 09/17/17 04:45 74 184/81 H 09/17/17 03:26 98.8 F 74 16 184/81 H 94 L Weight Admit Weight 130 lb 9.6 oz Weight 145 lb I&O: 09/16/17 09/17/17 09/18/17 06:59 06:59 06:59 Intake Total 1440 240 Output Total 1700 2600 Balance -260 -2360 Result Diagrams: 09/17/17 05:13 09/17/17 05:13 Additional Labs: Accuchecks 09/17/17 09/17/17 09/16/17 11:16 05:34 20:41 POC Glucose 302 H 191 H 171 H 09/16/17 17:19 POC Glucose 113 H Phys Exam - Physical Examination Constitutional: NAD HEENT: PERRLA, moist MMs, sclera anicteric Neck: supple Respiratory: no wheezing, no rales, no rhonchi, clear to auscultation bilateral Cardiovascular: RRR, no significant murmur, no rub Gastrointestinal: soft, non-tender, no distention, positive bowel sounds Musculoskeletal: edema present (minimal b/l lower extremities) Neurological: non-focal, moves all 4 limbs Psychiatric: normal affect, A&O x 3 Skin: no rash Dx/Plan (1) HTN (hypertension) Code(s): I10 - ESSENTIAL (PRIMARY) HYPERTENSION Status: Acute Qualifiers: Hypertension type: essential hypertension Qualified Code(s): I10 - Essential (primary) hypertension Plan: Improving but not at goal. Monitor BP closely. Comment: Improving. On Coreg, amlodipine, lisinopril. PRN clonidine. (2) Hypotension Status: Resolved Qualifiers: Hypotension type: unspecified hypotension type Qualified Code(s): I95.9 - Hypotension, unspecified Comment: RESOLVED (3) Hypothermia Code(s): T68.XXXA - HYPOTHERMIA, INITIAL ENCOUNTER Status: Resolved Qualifiers: Encounter type: subsequent encounter Qualified Code(s): T68.XXXD - Hypothermia, subsequent encounter Comment: RESOLVED. (4) Metabolic encephalopathy Code(s): G93.41 - METABOLIC ENCEPHALOPATHY Status: Resolved Comment: resolved (5) Positive blood culture Code(s): R78.81 - BACTEREMIA Status: Acute Comment: new cultures negatoive so far. Will monitor. If remains negative tomorrow, will d/c home. (6) Type 2 diabetes mellitus with hyperglycemia Code(s): E11.65 - TYPE 2 DIABETES MELLITUS WITH HYPERGLYCEMIA Status: Acute Qualifiers: Diabetes mellitus pen[facility]iary insulin use: with penitentiary use Qualified Code( s): E11.65 - Type 2 diabetes mellitus with hyperglycemia; Z79.4 - shelter ( current) use of insulin; Z79.4 - termination clerk (current) use of insulin; Z79.4 - termination clerk (current) use of insulin; Z79.4 - shelter (current) use of insulin Plan: Will monitor. Comment: not at goal. Home detemir and metformin restarted. On gabapentin for neuropathy. (7) Abdominal pain Code(s): R10.9 - UNSPECIFIED ABDOMINAL PAIN Status: Resolved Qualifiers: Abdominal location: generalized Qualified Code(s): R10.84 - Generalized abdominal pain (8) Acute urinary retention Code(s): R33.8 - OTHER RETENTION OF URINE Status: Acute Plan: f/u with urology as outpatient. Comment: s/p starr placement. No hydronephrosis on imaging. Will be d/c with starr and have close follow up with urology. (9) Hypokalemia Code(s): E87.6 - HYPOKALEMIA Status: Acute Comment: Replete. Check magnesium / - Plan cont current plan of care, plan discussed w/ family, starr catheter Replete. * .
[2017-09-17 14:50] LABS: H. pylori IgA ABS 9.3 units (0.0-8.9); H. pylori IgG ABS 9.01 (0.00-0.79); H. pylori IgM ABS Less than 9.0 units (0.0-8.9)
[2017-09-17] MEDS ORDERED: Lisinopril 20 MG TAB PO SCH (18:00)
[2017-09-17] MEDS: Simvastatin 5 MG TAB PO SCH (20:28)
[2017-09-17] MEDS: Magnesium Oxide 400 MG TAB PO SCH (20:28)
[2017-09-17] MEDS: Terazosin HCl 5 MG CAP PO SCH (20:29)
[2017-09-17] MEDS: Heparin 5,000 UNITS/ML VIAL SC SCH (20:30)
[2017-09-17] MEDS: Insulin Detemir 100 UNITS/ML 20 UNITS in Pre-Filled Syringe 1 EACH SC SCH (20:37)
[2017-09-17] MEDS: cloNIDine 0.1 MG TAB PO PRN (20:47)
[2017-09-17] MEDS ORDERED: Non-Formulary Item 1 EACH (Levemir Flexpen [Levemir Flexpen] 20 UNIT) SC SCH (21:00)
[2017-09-18] MEDS: Refresh (Polyvinyl Alcohol 1.4%/Povidone 0.6%) Opth Drops EA EYE SCH ×3 (00:21→14:26)
[2017-09-18 04:57] LABS: #Basophils 0.1 thou/uL (0.0-0.2); #Eosinphils 0.4 thou/uL (0.0-0.7); #Lymphocytes 1.8 thou/uL (1.20-3.40); #Monocytes 0.7 thou/uL (0.11-0.59); #Neutrophils 6.3 thou/uL (1.40-6.50); %Basophils 0.8 % (0.0-1.0); %Eosinophils 4.3 % (0.0-10.0); %Lymphocytes 19.7 % (21.0-51.0); %Monocytes 7.8 % (0.0-10.0); %Neutrophils 67.4 % (42.0-75.0); Hemoglobin 13.6 g/dL (14.0-18.0); Mean Corpuscular HGB CONC 31.6 g/dL (32.0-36.0); Mean Corpuscular Hemoglobin 26.6 pg (27.0-31.0); Mean Corpuscular Volume 84.4 fl (80.0-94.0); Mean Platelet Volume 7.3 fL (7.4-10.4); Platelet Count 400 thou/uL (130-400); RBC Distribution Width 17.6 % (11.5-14.5); White Blood Cell (WBC) Count 9.3 thou/uL (4.8-10.8)
[2017-09-18 05:13] LABS: Anion Gap 10 mmol/L (10-20); BUN (Urea Nitrogen) 7 mg/dL (8.4-25.7); Calc. Creatinine Clearance 79 mL/min (70-130); Carbon Dioxide 30 mmol/L (23-31); Chloride 102 mmol/L (98-107); Estimated GFR-MDRD Greater than 90; Glucose 115 mg/dL (83-110); Magnesium 1.2 mg/dL (1.6-2.6); Potassium 3.6 mmol/L (3.5-5.1); Sodium 138 mmol/L (136-145)
[2017-09-18 05:41] LABS: Folate (Folic Acid) 13.6 ng/mL (7.0-31.4)
[2017-09-18] MEDS ORDERED: Lisinopril 20 MG TAB PO SCH (09:00)
[2017-09-18] MEDS ORDERED: Amlodipine 10 MG TAB PO SCH (09:00)
[2017-09-18] MEDS: Tamsulosin HCl 0.4 MG CAP PO SCH (09:06)
[2017-09-18] MEDS: Potassium Chloride 20 MEQ TAB PO SCH (09:06)
[2017-09-18] MEDS: Sucralfate 1 GM TAB PO SCH (09:06)
[2017-09-18] MEDS: Gabapentin 400 MG CAP PO SCH (09:06)
[2017-09-18] MEDS: Heparin 5,000 UNITS/ML VIAL SC SCH (09:07)
[2017-09-18] MEDS: Magnesium Oxide 400 MG TAB PO SCH (09:07)
[2017-09-18] MEDS: Famotidine 20 MG TAB PO SCH (09:07)
[2017-09-18] MEDS: Carvedilol 25 MG TAB PO SCH (09:08)
[2017-09-18 12:53] VITALS: BP 111/55; TEMP 97.9
[2017-09-18] MEDS: metFORMIN 500 MG TAB PO SCH (14:23)
[2017-09-18] MEDS: Insulin Detemir 100 UNITS/ML 20 UNITS in Pre-Filled Syringe 1 EACH SC SCH (14:25)
--- NOTE | 2017-09-19 02:06 | DIS ---
DATE OF ADMISSION: 09/07/2017 DATE OF DISCHARGE: 09/18/2017 DISCHARGE DISPOSITION: Subacute rehabilitation. PRIMARY DISCHARGE DIAGNOSIS: Delirium (resolved). SECONDARY DIAGNOSES: Hypertension, hypothermia, metabolic encephalopathy, bacteremia, type 2 diabete s mellitus with hyperglycemia, acute urinary retention, hypokalemia. MEDICATIONS AT DISCHARGE: Amlodipine 10 mg p.o. daily, carvedilol 25 mg p.o. b.i.d., donepezil 5 mg p.o. at bedtime, folic acid 1 mg p.o. b.i.d., gabapentin 800 mg p.o. b.i.d., Levemir FlexPen 20 units subcutaneously b.i.d., lisinopril 40 mg p.o. daily, magnesium oxide 40 mg p.o. b.i.d., metformin hyd rochloride 1000 mg p.o. b.i.d., multivitamins 1 tablet p.o. daily, pantoprazole 40 mg p.o. b.i.d., pr avastatin 20 mg p.o. at bedtime, sucralfate 1 gram p.o. a.c. and at bedtime, tamsulosin 0.4 mg p.o. d aily, terazosin 5 mg p.o. at bedtime. PROCEDURES: Colonoscopy showed mild diverticulosis in the transverse, descending and sigmoid colon, otherwise no acute findings. TTE. CONSULTS: GI, Infectious Disease CONDITION AT DISCHARGE: Stable and improved. HISTORY OF PRESENT ILLNESS: A 71-year-old male who was noted on outpatient basis to have increased c onfusion. It was felt to be the onsets of dementia and he was initiated on Aricept at bedtime. On t he evening prior to admission, he kept walking over to his neighbor's, asking to help fix his TV. At 11:00 p.m., he repeated this action when he had been there earlier a few minutes before. It was als o noticed that his drawers were found with his medication indicating he has not been taking them darshana ectly. He was found by his roommate to be severely confused later that evening and early the next mo rning EMS was called. His blood glucose was noted to be in the 40s and he was given D50 twice. He a lso was noted to have an elevated white blood cell count and his core temperature was 94 degrees. Th johnny necessitated his admission for further evaluation. At the emergency room, he was agitated, was m oving his limbs without purpose, moaning, and in a semi-sedated state of mind, was unable to give a f ull history. Admission diagnoses were hypoglycemia, hypothermia, metabolic encephalopathy with leuko cytosis, leading to diagnosis of sepsis. He was admitted to medical bed and started on parenteral an tibiotics. He had multiple sets of blood cultures with 1 growing corynebacterium. Other procedures he had while on admission include a bone scan, CT paranasal sinuses which showed evidence of left max illary sinusitis. He also had an abdominal and pelvis ultrasound with Doppler, which were not remark able. Antibiotics given on admission include vancomycin, ceftriaxone, Coreg. Other medication he re ceived here include Coreg, Catapres, dextrose, Vasotec, Pepcid, gabapentin, Haldol, Apresoline, insul in, lisinopril, and metformin. He improved with therapy and repeat blood cultures were negative. Fo r his hypertension, it was initially challenging to control, but the patient was eventually discharge d on carvedilol, amlodipine, and lisinopril. He used to follow up with a physician within 1 week for blood pressure control and repeat labs. In addition for his diabetes, he was started on metformin, sucralfate and his home regimen of insulin, Levemir 20 units subcutaneously b.i.d. On discharge, he was awake and well oriented and stable to discharge to subacute rehabilitation. He also had urinary retention necessitating the placement of a Estrada catheter. It was recommended that the Estrada be cont inued on discharge and he will closely follow up with Urology within 5 days of discharge for further assessment of retention. He was continued on tamsulosin and terazosin CONDITION AT DISCHARGE: Stable. ACTIVITY RESTRICTIONS: To resume activities as tolerated. PLAN OF CARE: The patient to follow up with primary care physician within 1 week of discharge. He w ill also need a close followup with Urology within 5 days for likely removal of his Estrada catheter. PHYSICAL EXAMINATION: GENERAL: The patient was seen and examined at bedside on day of discharge. VITAL SIGNS: Stable. HEENT: PERRLA. Moist mucous membranes. Sclerae are anicteric. CONSTITUTIONAL: Not in acute distress. NECK: Supple, with full range of movement. RESPIRATORY: No wheezing, rales or rhonchi. Clear to auscultation bilaterally. CARDIOVASCULAR: Regular rate and rhythm. No significant murmurs, no rubs. GASTROINTESTINAL: Soft, nontender, no distention. Positive bowel sounds. GENITOURINARY: Estrada catheter in place, draining clear oma colored urine. MUSCULOSKELETAL: No lower extremity edema, moving all extremities spontaneously. NEUROLOGICAL: Nonfocal. Alert and well oriented. PSYCHIATRIC: Normal mood and affect. SKIN: No rash or lesions. Time of discharge including chart review and documentation 70 minutes.
== END 2017-09-18 14:26 | DRG 871 ==
LOC: ERS 03:27 → 2SE 08:14 → T4-B 09-10 07:16 → 2SE 09-14 14:11
PROVIDERS: ADMIT Specialist; ATTEND Specialist
PROC: 0DJ08ZZ Inspection of Upper Intestinal Tract, Via Natural or Artificial Opening Endoscopic (ICD-10-PCS; 2017-09-09)
PROC: 02HV33Z Insertion of Infusion Device into Superior Vena Cava, Percutaneous Approach (ICD-10-PCS; 2017-09-11)
PROC: 0DJD8ZZ Inspection of Lower Intestinal Tract, Via Natural or Artificial Opening Endoscopic (ICD-10-PCS; principal; 2017-09-15)
DX: A41.9 Sepsis, unspecified organism (principal); G93.41 Metabolic encephalopathy; K25.4 Chronic or unspecified gastric ulcer with hemorrhage; F03.91 Unspecified dementia, unspecified severity, with behavioral disturbance; E11.649 Type 2 diabetes mellitus with hypoglycemia without coma; E11.65 Type 2 diabetes mellitus with hyperglycemia; I95.9 Hypotension, unspecified; D72.0 Genetic anomalies of leukocytes; F05 Delirium due to known physiological condition; T68.XXXA Hypothermia, initial encounter; R33.9 Retention of urine, unspecified; E87.6 Hypokalemia; K57.30 Diverticulosis of large intestine without perforation or abscess without bleeding; J32.0 Chronic maxillary sinusitis; Z95.0 Presence of cardiac pacemaker; I25.10 Atherosclerotic heart disease of native coronary artery without angina pectoris; F41.9 Anxiety disorder, unspecified; K21.0 Gastro-esophageal reflux disease with esophagitis; I25.5 Ischemic cardiomyopathy; Z79.4 Long term (current) use of insulin; I10 Essential (primary) hypertension
CPT/HCPCS: 36415; 36416; 36569; 70450; 70470; 71045; 74018; 74177; 76700; 76770; 78306; 80048; 80053; 80202; 80306; 81003; 81015; 82150; 82274; 82550; 82553; 82607; 82746; 83605; 83690; 83735; 83880; 84484; 85025; 87040; 87086; 93005; 93306; 96361; 96365; 96367; 96372; 96375; 96376; A4216; A9503; C1751; C9113; G8978-GP-CK; G8979-GP-CI; G8996-GN-CI; G8996-GN-CK; G8997-GN-CI; G8997-GN-CJ; J0131; J0360; J0696; J1630; J1644; J1815; J2001; J2060; J2405; J2543; J2550; J2704; J3010; J3370; J7050

== ENCOUNTER 2017-11-25 14:25 | Inpatient (IN) | payer MEDICARE, MEDICAID ==
[2017-11-25 15:58] LABS: #Basophils 0.2 thou/uL (0.0-0.2); #Eosinphils 0.8 thou/uL (0.0-0.7); #Lymphocytes 1.9 thou/uL (1.20-3.40); #Monocytes 0.8 thou/uL (0.11-0.59); #Neutrophils 15.7 thou/uL (1.40-6.50); %Basophils 0.9 % (0.0-1.0); %Lymphocytes 9.8 % (21.0-51.0); %Monocytes 4.1 % (0.0-10.0); %Neutrophils 81.2 % (42.0-75.0); Hemoglobin 13.8 g/dL (14.0-18.0); Mean Corpuscular HGB CONC 32.1 g/dL (32.0-36.0); Mean Corpuscular Hemoglobin 27.2 pg (27.0-31.0); Mean Corpuscular Volume 84.8 fl (80.0-94.0); Mean Platelet Volume 6.9 fL (7.4-10.4); Platelet Count 482 thou/uL (130-400); Red Blood Cell (RBC) Count 5.06 mill/uL (4.70-6.10); White Blood Cell (WBC) Count 19.3 thou/uL (4.8-10.8)
[2017-11-25 16:18] LABS: ALT (SGPT) 11 U/L (8-55); AST (SGOT) 15 U/L (5-34); Albumin 3.6 g/dL (3.4-4.8); Alkaline Phosphatase 94 U/L (40-150); Anion Gap 12 mmol/L (10-20); BUN (Urea Nitrogen) 25 mg/dL (8.4-25.7); Bilirubin, Total 0.5 mg/dL (0.2-1.2); Calc. Creatinine Clearance 0 mL/min (70-130); Calcium 9.1 mg/dL (7.8-10.44); Carbon Dioxide 28 mmol/L (23-31); Chloride 98 mmol/L (98-107); Estimated GFR-MDRD 71; Globulin 3.4 g/dL (2.4-3.5); Glucose 232 mg/dL (83-110); Potassium 4.2 mmol/L (3.5-5.1); Sodium 134 mmol/L (136-145)
[2017-11-25] MEDS ORDERED: Piperacillin/Tazobactam 4.5 GM in Sodium Chloride 0.9% 100 ML IVPB SCH (16:45)
[2017-11-25 17:18] LABS: INR-International Normal Ratio 1.1; PTT 33.3 SEC (22.9-36.1); Prothrombin Time 14.6 SEC (12.0-14.7)
--- NOTE | 2017-11-25 17:22 | CT ---
CT HEAD WITHOUT CONTRAST: Technique: Multiple axial tomograms were obtained through the head without IV enhancement. History: Mental status change. FINDINGS: Ventricles have normal size and position. There is no evidence of mass or hemorrhage. No evidence of acute infarct. Sinuses and mastoids are well aerated. IMPRESSION: No acute abnormality. POS: [facility]
--- NOTE | 2017-11-25 17:23 | RAD ---
AP CHEST: History: Hypoglycemia. Syncope. FINDINGS: Lungs appear clear. No infiltrate. Heart size upper normal. Pacemaker leads unchanged. No change from prior exam of 09-07-17. IMPRESSION: No acute finding. POS: [facility]
[2017-11-25 17:29] LABS: Bilirubin Negative (Negative); Blood, Urine Negative (Negative); Clarity CLEAR (Clear); Glucose, Urine (Dipstick) Negative (Negative); Leukocyte Negative (Negative); Nitrite Negative (Negative); Protein, Urine (Dipstick) Negative (Neg-Trace); Specific Gravity, Urine 1.011 (1.002-1.036); Urobilinogen 0.2 mg/dL (0.2-1.0)
[2017-11-25 17:35] LABS: Troponin I Less than 0.010 ng/mL (< 0.028)
[2017-11-25 17:41] LABS: CKMB 11.5 ng/mL (0-6.6)
[2017-11-25 19:10] LABS: Troponin I Less than 0.010 ng/mL (< 0.028)
[2017-11-25 22:45] LABS: Lactic Acid 1.2 mmol/L (0.5-2.2)
[2017-11-25 22:53] LABS: Troponin I Less than 0.010 ng/mL (< 0.028)
[2017-11-26] MEDS: D5 1/2 NS w/40 mEq KCL 1,000 ML IV SCH ×2 (00:15→10:19)
[2017-11-26 02:23] VITALS: BMI 24.0
[2017-11-26] MEDS ORDERED: Ondansetron ODT 4 MG TAB SL PRN (03:33)
[2017-11-26] MEDS ORDERED: Acetaminophen 325 MG TAB PO PRN ×2 (03:33→05:21)
[2017-11-26] MEDS ORDERED: Sodium Chloride 0.9% 1,000 ML IV SCH ×3 (03:33→15:15)
[2017-11-26] MEDS ORDERED: Ondansetron HCl/PF 4 MG/2 ML Vial IVP PRN (03:33)
[2017-11-26] MEDS ORDERED: Piperacillin/Tazobactam 3.375 GM in Sodium Chloride 0.9% 100 ML IVPB SCH (04:00)
[2017-11-26] MEDS ORDERED: Senokot 8.6 MG TAB PO PRN (05:21)
[2017-11-26] MEDS ORDERED: Nitroglycerin 0.4 MG TAB (25 Tab Bottle) PO PRN (05:21)
[2017-11-26] MEDS ORDERED: Dextrose 50% Abboject 50 ML SYRINGE SLOW IVP PRN (05:23)
[2017-11-26] MEDS ORDERED: Dextrose 5% in Water 1,000 ML IV PRN (05:23)
--- NOTE | 2017-11-26 05:59 | HP ---
DATE OF ADMISSION: 11/25/2017 CHIEF COMPLAINT: Altered mentation. HISTORY OF PRESENT ILLNESS: The patient is a 72-year-old male, primarily Tunisian speaking o nly, with coronary artery disease, hypertension, who presented to the emergency room with above compl aints by EMS. Patient was admitted to the hospital in August of this year with hypoglycemia with hypothermia. He was [facility] a [facility]. He was found to have urinary retention and Estrada attila ter was placed. The patient was found to have altered mentation with blood sugar of 46 at home. His blood sugar impr ry to 190 after D50 administration. He also received glucagon by EMS. At this time, there is no f amily at the bedside. The family reported in the emergency room that patient was on his way to lunch and had difficulty getting out of his car. He was acting strange, was sitting on the table and then became unresponsive. The daughter also reported that patient's diet was recently switched to strict diabetic diet. The patient's mentation has improved at this time. At this time, he denies any complaints. No chest pain, shortness of breath, palpitations, nausea, vomiting, fall, or focal neurologic deficits report ed. In the emergency room, initial vital signs showed temperature 96.3 rectal, with respirations 18, puls e rate of 60, blood pressure of 138/70. His O2 saturation was 100% on room air. His WBC count was 1 9.3 with 81.2% neutrophils. Lactic acid was 2.5. Urinalysis was negative for WBC, bacteria. Chest x-ray was negative for infiltrate or edema. CT scan of the brain was negative for acute findings. Blood and urine cultures have been sent. He r eceived Zosyn along with IV fluids in the emergency room. He was diaphoretic in the emergency room p er ER record. PAST MEDICAL HISTORY: 1. Hypertension. 2. Diabetes mellitus type 2. 3. Urinary retention, currently with indwelling Estrada catheter. 4. Physical deconditioning. 5. Dyslipidemia. 6. Ischemic cardiomyopathy. 7. Sick sinus syndrome, status post pacemaker. 8. Dementia. 9. GERD. 10. History of H. pylori infection. 11. Diverticulosis. 12. Degenerative joint disease. 13. Benign prostatic hypertrophy. 14. Peripheral neuropathy. 15. Anxiety. PAST SURGICAL HISTORY: 1. Colonoscopy. 2. EGD. 3. Bilateral carpal tunnel surgery. 4. Pacemaker placement. ALLERGIES: No known drug allergies. CURRENT HOME MEDICATIONS: To be verified with the family when they arrive. Patient is unable to rec all any of his home medications. SOCIAL HISTORY: He currently lives with his family. [facility] earlier this year. He is FULL CODE. The family makes the decision for him, especially Teresa moses RN. FAMILY HISTORY: Negative for heart disease. REVIEW OF SYSTEMS: Cannot be reliably obtained from the patient due to current cognitive status. PHYSICAL EXAMINATION: VITAL SIGNS: As discussed above. GENERAL: A 72-year-old male in no apparent distress, appears comfortable. HEENT: Head: Atraumatic, normocephalic. Sclerae are anicteric. Dry mucous membranes. No oral les ion. NECK: Supple. No JVD appreciated. No carotid bruit. LUNGS: Clear to auscultation bilaterally with scattered rales at bases. No wheezing or rhonchi. HEART: S1, S2 present. Regular rate and rhythm. No significant rubs or gallops. There was 2/6 sys tolic murmur over the mitral area. ABDOMEN: Soft, nontender, bowel sounds present. EXTREMITIES: No edema or calf tenderness. NEUROLOGIC: The patient is moving all of his extremities appropriately. Strength was 5/5. GENITOURINARY: Patient has indwelling Estrada catheter. SKIN: Warm and dry. LYMPH NODES: No palpable lymph nodes in the neck. PERIPHERAL VASCULAR: Radial pulses palpable bilaterally. MUSCULOSKELETAL: No joint swelling or tenderness. LABORATORY AND DIAGNOSTIC FINDINGS: As discussed above. 1. Lactic acid 2.5. Repeat lactic acid 1.2. 2. Blood sugar of 206. 3. Chest x-ray by my review as discussed above. 4. EKG by my review showed paced rhythm. IMPRESSION: 1. Toxic metabolic encephalopathy probably secondary to hypoglycemia, rule out sepsis. 2. Suspected sepsis with acute organ dysfunction of unclear etiology. 3. Lactic acidosis. 4. Diabetes mellitus type 2 with hypoglycemia. 5. Mild hyponatremia. 6. Leukocytosis with left shift. 7. Dementia. 8. Hypertension. 9. Coronary artery disease. 10. Ischemic cardiomyopathy. 11. Chronic urinary retention with indwelling Estrada catheter. 12. Diverticulosis. 13. Gastroesophageal reflux disease. 14. Degenerative joint disease. 15. Benign prostatic hypertrophy. 16. Physical deconditioning. PLAN: The patient will be monitored on the telemetry unit. We will check CK level. Monitor blood s ugars closely. We will continue Zosyn. Blood and urine cultures have been sent. We will continue I V fluids. We will confirm home medications. We will consider Infectious Disease consultation. Plan of care was discussed with the patient, he stated understanding. Please note that there is no family at the bedside. We will discuss the plan of care with the family when they arrive.
[2017-11-26] MEDS: Famotidine 20 MG TAB PO SCH ×2 (09:44→20:49)
[2017-11-26] MEDS: Enoxaparin Sodium 30 MG/0.3 ML SYRINGE SC SCH (09:45)
[2017-11-26] MEDS: Docusate 100 MG CAP PO SCH ×2 (09:45→20:50)
[2017-11-26] MEDS: cefTRIAXone\\ROCEPHIN 1 GM in Sterile Water 10 ML SLOW IVP SCH (09:45)
[2017-11-26 11:44] LABS: Magnesium 1.5 mg/dL (1.6-2.6)
[2017-11-26] MEDS: Artificial Tears 18 DROP/0.9 ML EA EYE PRN (15:31)
[2017-11-26] MEDS: hydrALAZINE 20 MG/ML VIAL SLOW IVP PRN (15:37)
[2017-11-26] MEDS: HumaLOG 300 UNITS/3 ML VIAL SC PRN (16:54)
[2017-11-27] MEDS: hydrALAZINE 20 MG/ML VIAL SLOW IVP PRN (04:16)
[2017-11-27 05:16] LABS: #Basophils 0.2 thou/uL (0.0-0.2); #Eosinphils 0.6 thou/uL (0.0-0.7); #Lymphocytes 1.9 thou/uL (1.20-3.40); #Monocytes 0.4 thou/uL (0.11-0.59); #Neutrophils 7.7 thou/uL (1.40-6.50); %Basophils 1.8 % (0.0-1.0); %Eosinophils 5.4 % (0.0-10.0); %Lymphocytes 17.6 % (21.0-51.0); %Monocytes 4.1 % (0.0-10.0); %Neutrophils 71.1 % (42.0-75.0); Hemoglobin 15.1 g/dL (14.0-18.0); Mean Corpuscular HGB CONC 31.6 g/dL (32.0-36.0); Mean Corpuscular Hemoglobin 26.7 pg (27.0-31.0); Mean Corpuscular Volume 84.2 fl (80.0-94.0); Mean Platelet Volume 6.9 fL (7.4-10.4); Platelet Count 499 thou/uL (130-400); RBC Distribution Width 17.2 % (11.5-14.5); Red Blood Cell (RBC) Count 5.66 mill/uL (4.70-6.10); White Blood Cell (WBC) Count 10.8 thou/uL (4.8-10.8)
[2017-11-27 05:32] LABS: ALT (SGPT) 13 U/L (8-55); AST (SGOT) 15 U/L (5-34); Albumin 3.9 g/dL (3.4-4.8); Alkaline Phosphatase 107 U/L (40-150); Anion Gap 12 mmol/L (10-20); BUN (Urea Nitrogen) 14 mg/dL (8.4-25.7); Bilirubin, Total 0.5 mg/dL (0.2-1.2); Calc. Creatinine Clearance 66 mL/min (70-130); Calcium 9.7 mg/dL (7.8-10.44); Carbon Dioxide 26 mmol/L (23-31); Chloride 99 mmol/L (98-107); Estimated GFR-MDRD Greater than 90; Globulin 3.6 g/dL (2.4-3.5); Glucose 269 mg/dL (83-110); Magnesium 1.6 mg/dL (1.6-2.6); Phosphorus 3.1 mg/dL (2.3-4.7); Potassium 4.2 mmol/L (3.5-5.1); Protein, Total 7.5 g/dL (5.8-8.1); Sodium 133 mmol/L (136-145)
[2017-11-27] MEDS ORDERED: Loperamide HCl 2 MG CAP PO PRN (09:17)
[2017-11-27] MEDS ORDERED: Ondansetron ODT 4 MG TAB PO PRN (09:17)
[2017-11-27] MEDS: Docusate 100 MG CAP PO SCH ×2 (09:29→21:29)
[2017-11-27] MEDS: cefTRIAXone\\ROCEPHIN 1 GM in Sterile Water 10 ML SLOW IVP SCH (09:30)
[2017-11-27] MEDS: Enoxaparin Sodium 30 MG/0.3 ML SYRINGE SC SCH (09:30)
[2017-11-27] MEDS: Famotidine 20 MG TAB PO SCH ×2 (09:30→21:29)
[2017-11-27] MEDS: HumaLOG 300 UNITS/3 ML VIAL SC PRN (09:31)
--- NOTE | 2017-11-27 12:13 | PDOC.PN ---
- Subjective Encounter Start Date: 11/27/17 Encounter Start Time: 12:25 Subjective: No new complaints. -: No acute events overnight. - Objective Resuscitation Status: Resuscitation Status FULL:Full Resuscitation MAR Reviewed: Yes Vital Signs & Weight: Vital Signs (12 hours) Temp Pulse Resp BP Pulse Ox 11/27/17 07:30 97.6 F 83 18 93 L 11/27/17 07:15 97.6 F 83 18 165/81 H 93 L 11/27/17 05:18 85 137/67 11/27/17 04:00 98.1 F 78 18 186/93 H 94 L Weight Weight 127 lb 6 oz I&O: 11/26/17 11/27/17 11/28/17 06:59 06:59 06:59 Intake Total 1225 870 Output Total 400 1725 Balance 825 -855 Result Diagrams: 11/27/17 04:31 11/27/17 04:31 Additional Labs: Accuchecks 11/27/17 11/27/17 11/27/17 10:35 05:16 02:36 POC Glucose 526 H 245 H 253 H 11/26/17 11/26/17 20:59 15:23 POC Glucose 246 H 332 H Phys Exam - Physical Examination Constitutional: NAD HEENT: PERRLA, moist MMs, sclera anicteric, oral pharynx no lesions Neck: no JVD, supple, full ROM Respiratory: no wheezing, no rales, no rhonchi, clear to auscultation bilateral Cardiovascular: RRR, no significant murmur, no rub Gastrointestinal: soft, non-tender, no distention, positive bowel sounds Musculoskeletal: no edema, pulses present Neurological: non-focal, moves all 4 limbs Psychiatric: normal affect, A&O x 3 Skin: no rash, normal turgor Dx/Plan (1) DM2 (diabetes mellitus, type 2) Status: Acute Qualifiers: Diabetes mellitus intermodal truck driver insulin use: with intermodal truck driver use Diabetes mellitus complication status: with hyperglycemia Qualified Code(s): E11.65 - Type 2 diabetes mellitus with hyperglycemia; Z79.4 - terminal operations manager (current) use of insulin; Z79.4 - [facility] (current) use of insulin; Z79.4 - [facility] (current ) use of insulin; Z79.4 - [facility] (current) use of insulin Comment: p/w hypoglycemia but now hyperglycemic. Will resume home insulin regimen and metformin. (2) Leucocytosis Code(s): D72.829 - ELEVATED WHITE BLOOD CELL COUNT, UNSPECIFIED Status: Acute Qualifiers: Leukocytosis type: unspecified Qualified Code(s): D72.829 - Elevated white blood cell count, unspecified Comment: Improving. Cultures pending. Continue ceftriaxone for now. (3) Ischemic cardiomyopathy Code(s): I25.5 - ISCHEMIC CARDIOMYOPATHY Status: Acute (4) H/O sick sinus syndrome Code(s): Z86.79 - PERSONAL HISTORY OF OTHER DISEASES OF THE CIRCULATORY SYSTEM Status: Chronic Comment: Stable. (5) Urinary retention Code(s): R33.9 - RETENTION OF URINE, UNSPECIFIED Status: Chronic Comment: w h/o chronic indwelling catheter. (6) Dementia Code(s): F03.90 - UNSPECIFIED DEMENTIA WITHOUT BEHAVIORAL DISTURBANCE Status: Chronic Qualifiers: Dementia type: Alzheimer's disease Alzheimer's disease onset: unspecified onset Dementia behavioral disturbance: without behavioral disturbance Qualified Code(s): G30.9 - Alzheimer's disease, unspecified; F02.80 - Dementia in other diseases classified elsewhere without behavioral disturbance; F02.80 - Dementia in other diseases classified elsewhere without behavioral disturbance; F02.80 - Dementia in other diseases classified elsewhere without behavioral disturbance Comment: Delirium precautions/. (7) HTN (hypertension) Code(s): I10 - ESSENTIAL (PRIMARY) HYPERTENSION Status: Acute Qualifiers: Comment: Not at goal. We will resume home regimen and monitor. (8) Metabolic encephalopathy Code(s): G93.41 - METABOLIC ENCEPHALOPATHY Status: Resolved Comment: resolved (9) Hypoglycemia Code(s): E16.2 - HYPOGLYCEMIA, UNSPECIFIED Status: Resolved (10) Lactic acidosis Code(s): E87.2 - ACIDOSIS Status: Resolved - Plan cont current plan of care, plan discussed w/ family, starr catheter * . Review of Systems - Medications/Allergies Allergies/Adverse Reactions: Allergies Allergy/AdvReac Type Severity Reaction Status Date / Time No Known Drug Allergies Allergy Verified 07/16/17 16:13 Medications: Current Medications Acetaminophen (Tylenol) 650 mg PO Q4H PRN PRN Reason: Headache/Fever or Pain Amlodipine Besylate (Norvasc) 5 mg PO DAILY [facility] Artificial Tears (Tears Naturale) 1 drop EA EYE PRN PRN PRN Reason: Dry Eyes Last Admin: 11/26/17 15:31 Dose: 1 drop Dextrose/Water (Dextrose 50%) 25 gm SLOW IVP PRN PRN PRN Reason: Hypoglycemia Docusate Sodium (Colace) 100 mg PO BID [facility] Last Admin: 11/26/17 20:50 Dose: 100 mg Donepezil HCl (Aricept) 5 mg PO HS [facility] Enoxaparin Sodium (Lovenox) 30 mg SC 0900 [facility] Last Admin: 11/26/17 09:45 Dose: 30 mg Famotidine (Pepcid) 20 mg PO BID [facility] Last Admin: 11/26/17 20:49 Dose: 20 mg Folic Acid (Folvite) 1 mg PO BID [facility] Gabapentin (Neurontin) 800 mg PO TID [facility] Glucagon (Glucagon) 1 mg IM PRN PRN PRN Reason: Hypoglycemia Hydralazine HCl (Apresoline) 10 mg SLOW IVP Q6H PRN PRN Reason: SBP Greater Than 170 Last Admin: 11/27/17 04:16 Dose: 10 mg Ceftriaxone Sodium 1 gm/ (Sterile Water) 10 mls @ 120 mls/hr SLOW IVP DAILY [facility] Last Admin: 11/26/17 09:45 Dose: 10 mls Dextrose/Water (D5w) 1,000 mls @ 0 mls/hr IV .Q0M PRN; As Directed PRN Reason: Hypoglycemia Insulin Detemir 15 units/ (Syringe) 0.15 mls @ 0 mls/hr SC HS [facility] Insulin Human Lispro (Humalog) 0 units SC .MILD SLIDING SCALE PRN; Protocol PRN Reason: MILD SLIDING SCALE Last Admin: 11/26/17 16:54 Dose: 5 unit Insulin Human Lispro (Humalog) 7 units SC ACHS [facility] Lisinopril (Zestril) 40 mg PO DAILY [facility] Loperamide HCl (Imodium) 2 mg PO ASDIR PRN PRN Reason: Diarrhea/Loose Stools Magnesium Oxide (Magnesium Oxide) 400 mg PO BID [facility] Metformin HCl (Glucophage) 1,000 mg PO BID[facility] Metoprolol Succinate (Toprol Xl) 25 mg PO DAILY [facility] Metoprolol Succinate (Toprol Xl) 25 mg PO 1100 [facility] Stop: 11/27/17 13:00 Multivitamins (Theragran) 1 tab PO DAILY [facility] Nitroglycerin (Nitrostat) 0.4 mg PO Q5MIN PRN PRN Reason: Chest Pain Ondansetron HCl (Zofran Odt) 4 mg PO TID PRN PRN Reason: Nausea/Vomiting Pantoprazole Sodium (Protonix) 40 mg PO DAILY [facility] Potassium Chloride (K-Dur) 20 meq PO QAM-WM [facility] Senna (Senokot) 2 tab PO HSPRN PRN PRN Reason: Constipation Simvastatin (Zocor) 10 mg PO HS [facility] Sodium Chloride (Flush - Normal Saline) 10 ml IVF Q12HR [facility] Last Admin: 11/26/17 20:50 Dose: 10 ml Sodium Chloride (Flush - Normal Saline) 10 ml IVF PRN PRN PRN Reason: Saline Flush Sucralfate (Carafate) 1 gm PO ACHS [facility] Tamsulosin HCl (Flomax) 0.4 mg PO DAILY [facility] Terazosin HCl (Hytrin) 5 mg PO HS [facility]
[2017-11-27] MEDS: Sucralfate 1 GM TAB PO SCH ×3 (13:04→21:28)
[2017-11-27] MEDS: HumaLOG 300 UNITS/3 ML VIAL SC SCH ×3 (13:05→21:30)
[2017-11-27] MEDS: Artificial Tears 18 DROP/0.9 ML EA EYE PRN (13:13)
[2017-11-27] MEDS: Gabapentin 400 MG CAP PO SCH ×2 (13:59→21:29)
[2017-11-27] MEDS: metFORMIN 500 MG TAB PO SCH (16:02)
[2017-11-27] MEDS ORDERED: Terazosin HCl 5 MG CAP PO SCH (21:00)
[2017-11-27] MEDS ORDERED: Donepezil HCl 5 MG TAB PO SCH (21:00)
[2017-11-27] MEDS ORDERED: Insulin Detemir 100 UNITS/ML 15 UNITS in Syringe 0 ML SC SCH (21:00)
[2017-11-27] MEDS ORDERED: Simvastatin 5 MG TAB PO SCH (21:00)
[2017-11-27] MEDS ORDERED: Carvedilol 25 MG TAB PO SCH (21:00)
[2017-11-27] MEDS ORDERED: Non-Formulary Item 1 EACH (Insulin Glargine,Hum.Rec.Anlog [Lantus] 15 UNITS) SQ SCH (21:00)
[2017-11-27] MEDS: Magnesium Oxide 400 MG TAB PO SCH (21:28)
[2017-11-27] MEDS: Folic Acid 1 MG TAB PO SCH (21:29)
[2017-11-28] MEDS ORDERED: Potassium Chloride 20 MEQ TAB PO SCH (08:00)
[2017-11-28] MEDS: Enoxaparin Sodium 30 MG/0.3 ML SYRINGE SC SCH (08:07)
[2017-11-28] MEDS: HumaLOG 300 UNITS/3 ML VIAL SC SCH (08:08)
[2017-11-28] MEDS: Famotidine 20 MG TAB PO SCH (08:09)
[2017-11-28] MEDS: metFORMIN 500 MG TAB PO SCH (08:09)
[2017-11-28] MEDS: Magnesium Oxide 400 MG TAB PO SCH (08:09)
[2017-11-28] MEDS: Folic Acid 1 MG TAB PO SCH (08:09)
[2017-11-28] MEDS: Sucralfate 1 GM TAB PO SCH (08:09)
[2017-11-28] MEDS: Docusate 100 MG CAP PO SCH (08:09)
[2017-11-28] MEDS: Gabapentin 400 MG CAP PO SCH (08:09)
[2017-11-28] MEDS ORDERED: Tamsulosin HCl 0.4 MG CAP PO SCH (09:00)
[2017-11-28] MEDS ORDERED: Multivit, Therapeutic 1 TAB PO SCH (09:00)
[2017-11-28] MEDS ORDERED: Amlodipine 5 MG TAB PO SCH (09:00)
[2017-11-28] MEDS ORDERED: Lisinopril 20 MG TAB PO SCH (09:00)
[2017-11-28] MEDS: cefTRIAXone\\ROCEPHIN 1 GM in Sterile Water 10 ML SLOW IVP SCH (09:23)
[2017-11-28] MEDS: HumaLOG 300 UNITS/3 ML VIAL SC PRN (09:25)
[2017-11-28 11:33] VITALS: BP 121/66; TEMP 98.2
--- NOTE | 2017-11-28 19:59 | EKG ---
Test Reason : Blood Pressure : / mmHG Vent. Rate : 060 BPM Atrial Rate : 060 BPM P-R Int : 000 ms QRS Dur : 160 ms QT Int : 512 ms P-R-T Axes : 105 142 -05 degrees QTc Int : 512 ms AV dual-paced rhythm Abnormal ECG Confirmed by ANTON RAMIREZ ([id number]), content editor RADHA CLEARY ([id number]) on 11/28/2017 7:59:27 PM Referred By: Confirmed By:ANTON RAMIREZ
--- NOTE | 2017-11-28 21:34 | DIS ---
DATE OF ADMISSION: 11/25/2017 DATE OF DISCHARGE: 11/28/2017 DISCHARGE DIAGNOSES: Hypoglycemia, hypertension, type 2 diabetes mellitus, urinary retention with in dwelling [place], physical deconditioning, dyslipidemia, ischemic cardiomyopathy, sick sinus syndrome, status post pacemaker, dementia, BPH, anxiety. HISTORY OF PRESENT ILLNESS/HOSPITAL COURSE: Mr. Luis Alberto Yun is a 72-year-old male, prima rily [place] speaking only with CAD, hypertension, who presented to emergency room with altered menta tion. Patient was admitted to the hospital August of this year with hypoglycemia and hypothermia. [facility] to a [facility] facility. He was discharged on folic acid, after being seen b y Urology due to continued urinary retention. At retirement was found to have a blood sugar of 46 and he was given D50 with improvement to 190 also received glucagon by EMS. Then, later on the famil y reported that this happened while he was on his way to lunch and had difficult to get out of his ca r. He was acting strange and while sitting on the table and then became responsive. Daughter also r eported that he was recently switched to a strict-diabetic diet. At the emergency room, his mentatio n had improved and he had no complaints. He denies chest pain, shortness of breath, palpitation, jose daniel sea, vomiting, or focal neurologic deficits. Vital signs were stable with O2 saturation 100% on room air. He had elevated WBC count of 19,000 with 81.2% neutrophils and a lactic acid of 2.5. Urinalys is was negative for WBC or bacteria. Chest x-ray was negative for any infiltrates or edema. He had a CT scan of the brain, which was negative for any acute findings. Blood and urine cultures were col lected and patient was started on IV Zosyn along with IV fluids. He was then admitted to the telemet [facility] unit for monitoring. His blood sugars were monitored closely and returned to normal. He actuall y became hyperglycemic and he was started back on his home regimen; however, his long-acting insulin was reduced to 10 units from 15 units. He responded well to therapy and was deemed stable for discha rge home. We encouraged to ensure his blood sugars are checked regularly before any insulin administ ration. HOME MEDICATIONS: Metformin of 1000 mg twice a day with meals, carvedilol 25 mg twice a day, multivi tamin 1 tablet daily, pravastatin 20 mg at bedtime, acetaminophen with codeine 1-2 tablets every 4 ho urs as needed for pain, folic acid 1 mg daily, donepezil 5 mg at bedtime, tamsulosin 0.4 mg daily, te razosin 5 mg at bedtime, gabapentin 800 mg 3 times a day, lisinopril 40 mg daily, sucralfate 1 gram b efore meals and at bedtime, magnesium oxide 400 mg twice a day, loperamide 2 mg as needed, furosemide 20 mg daily, ondansetron 4 mg 3 times a day as needed for nausea/vomiting, amiodarone 5 mg daily, po tassium 20 mEq daily, insulin lispro 7 units before meals and at bedtime, acetaminophen 325 mg 4 time s a day as needed for pain/fever, pantoprazole 40 mg daily, insulin glargine 10 units subcutaneous at bedtime. PHYSICAL EXAMINATION: He was examined on the day of discharge, VITAL SIGNS: Temperature 98.2 degree Fahrenheit, pulse 69, respiratory rate 16, oxygen saturation 96 % on room air, blood pressure 121/66. GENERAL: Not in acute distress, sitting comfortably in bed. HEENT: PERRLA. Moist mucous membrane, sclerae anicteric. Oropharynx has no lesions. NECK: No JVD, supple. Full range of movement. RESPIRATORY: Vesicular breath sounds with no wheezes or rales. CARDIOVASCULAR: S1 and S2 with regular rate and rhythm. No murmurs, rubs, or gallops. GASTROINTESTINAL: Soft, nontender, nondistended. Positive bowel sounds, no hepatosplenomegaly. MUSCULOSKELETAL: No edema. Pulses present. NEUROLOGICAL: Nonfocal. Moves all four limbs spontaneously. PSYCHIATRIC: Normal mood and affect. Alert and well oriented to time, place, and person. SKIN: No rash. Normal turgor, warm, and well perfused. LABORATORY DATA: WBC 10.8, hemoglobin 15.1, platelet count 199. Sodium 133, potassium 4.2, chloride 99, carbon dioxide 26, anion gap 12, BUN 14, creatinine 0.8, magnesium 1.6, calcium 9.7, blood gluco se 144. IMAGING: Chest x-ray, brain CT. CONSULTATIONS: None. CONDITION AT DISCHARGE: Stable and improved. PROCEDURES: None. DIET: Diabetic, heart-healthy, low-sodium. CARE GOALS: Follow up with primary care physician within 1 week of discharge. ACTIVITY: As tolerated. DISCHARGE TIME: 65 minutes including chart review and documentation.
== END 2017-11-28 11:57 | DRG 638 ==
LOC: ERS 14:25 → 2NO 18:00 → T4-A 11-27 17:36
PROVIDERS: ADMIT Internal Medicine; ATTEND Internal Medicine
DX: E11.649 Type 2 diabetes mellitus with hypoglycemia without coma (principal); E87.2 Acidosis; G92 Toxic encephalopathy; G62.9 Polyneuropathy, unspecified; E87.1 Hypo-osmolality and hyponatremia; I25.5 Ischemic cardiomyopathy; F03.90 Unspecified dementia, unspecified severity, without behavioral disturbance, psychotic disturbance, mood disturbance, and anxiety; I25.10 Atherosclerotic heart disease of native coronary artery without angina pectoris; E78.5 Hyperlipidemia, unspecified; I10 Essential (primary) hypertension; R33.9 Retention of urine, unspecified; Z95.0 Presence of cardiac pacemaker; K21.9 Gastro-esophageal reflux disease without esophagitis; M19.90 Unspecified osteoarthritis, unspecified site; F41.9 Anxiety disorder, unspecified; K57.90 Diverticulosis of intestine, part unspecified, without perforation or abscess without bleeding; N40.1 Benign prostatic hyperplasia with lower urinary tract symptoms; R33.8 Other retention of urine
CPT/HCPCS: 36415; 36416; 70450; 71045; 80053; 81003; 82550; 82553; 83605; 83735; 84100; 84484; 85025; 85610; 85730; 87040; 87086; 93005; 94760; 96361; 96365; 96366; 96368; A4216; G8978-GP-CI; G8979-GP-CI; G8980-GP-CI; G8987-GO-CI; G8988-GO-CI; G8989-GO-CI; J0360; J0696; J1650; J1815; J2543; J3480; J7042; J7050

== ENCOUNTER 2018-04-02 16:32 | Emergency (ER) | payer MEDICARE, MEDICAID ==
[2018-04-02 17:03] LABS: #Basophils 0.1 thou/uL (0.0-0.2); #Eosinphils 0.4 thou/uL (0.0-0.7); #Lymphocytes 2.3 thou/uL (1.20-3.40); #Monocytes 1.1 thou/uL (0.11-0.59); %Eosinophils 3.3 % (0.0-10.0); %Lymphocytes 19.5 % (21.0-51.0); %Monocytes 8.9 % (0.0-10.0); %Neutrophils 67.3 % (42.0-75.0); Hemoglobin 13.2 g/dL (14.0-18.0); Mean Corpuscular HGB CONC 31.4 g/dL (32.0-36.0); Mean Corpuscular Hemoglobin 24.5 pg (27.0-31.0); Mean Corpuscular Volume 78.1 fL (78.0-98.0); Mean Platelet Volume 6.9 fL (7.4-10.4); Platelet Count 443 thou/uL (130-400); RBC Distribution Width 16.4 % (11.5-14.5); Red Blood Cell (RBC) Count 5.38 mill/uL (4.70-6.10); White Blood Cell (WBC) Count 11.9 thou/uL (4.8-10.8)
[2018-04-02 17:25] LABS: ALT (SGPT) 9 U/L (8-55); AST (SGOT) 15 U/L (5-34); Albumin 3.6 g/dL (3.4-4.8); Alkaline Phosphatase 141 U/L (40-150); Anion Gap 12 mmol/L (10-20); BUN (Urea Nitrogen) 24 mg/dL (8.4-25.7); Bilirubin, Total 0.4 mg/dL (0.2-1.2); CK (CPK) 114 U/L (30-200); Calc. Creatinine Clearance 0 mL/min (70-130); Calcium 8.6 mg/dL (7.8-10.44); Carbon Dioxide 27 mmol/L (23-31); Chloride 97 mmol/L (98-107); Estimated GFR-MDRD 48; Globulin 3.5 g/dL (2.4-3.5); Glucose 99 mg/dL (83-110); Lipase 13 U/L (8-78); Potassium 4.4 mmol/L (3.5-5.1); Protein, Total 7.1 g/dL (5.8-8.1); Sodium 132 mmol/L (136-145)
--- NOTE | 2018-04-02 17:26 | RAD ---
PORTABLE UPRIGHT FRONTAL CHEST RADIOGRAPH 04/02/18 COMPARISON: 11/25/17 HISTORY: Altered mental status, history of diabetes and hypertension. FINDINGS: There is atherosclerotic calcification in the aortic arch. There is a three lead transvenous AICD pre sent, stable. There is no pneumothorax, pleural fluid, focal consolidation, or alveolar edema. Heart and mediastinal contours are stable. IMPRESSION: No acute findings. POS: [facility]
[2018-04-02 17:28] LABS: CKMB 5.3 ng/mL (0-6.6); Troponin I Less than 0.010 ng/mL (< 0.028)
[2018-04-02 18:16] LABS: Bilirubin Negative (Negative); Blood, Urine Moderate (Negative); Clarity TURBID (Clear); Glucose, Urine (Dipstick) Negative (Negative); Leukocyte Large (Negative); Nitrite Negative (Negative); Protein, Urine (Dipstick) 100 mg/dL (Neg-Trace); Specific Gravity, Urine 1.017 (1.002-1.036); pH, Urine 5.5 (5.0-9.0)
[2018-04-02 18:21] LABS: Bacteria/HPF 1+ HPF (None Seen); Hyaline Casts/LPF 4-6 HYALINE CAST LPF (0-3 Hyaline); Pathc Cast-AUWi Flag 0.95 (0-2.49); Squamous Epithelial 0-3 HPF (0-3)
[2018-04-02 18:23] LABS: Yeast-AUWi Flag 51.8 (0-25.0)
[2018-04-02 18:31] LABS: Yeast-All Forms None Seen HPF (None Seen)
--- NOTE | 2018-04-02 18:43 | CT ---
HEAD CT WITHOUT CONTRAST: 04/02/18 COMPARISON: 11/25/17. HISTORY: Altered mental status. TECHNIQUE: Serial axial CT imaging at 5 mm intervals from vertex through skull base without contrast. FINDINGS: There is atherosclerotic calcification of the cavernous carotid arteries. No intracranial hemorrhage, midline shift, mass effect or ventricular enlargement. Visualized paranas al sinuses/mastoid air cells well aerated. IMPRESSION: No acute findings. POS: [facility]
[2018-04-02] MEDS ORDERED: cefTRIAXone\\ROCEPHIN 2 GM VIAL ONE (18:52)
[2018-04-02] MEDS ORDERED: Lidocaine 1% PF 5 ML VIAL ONE (18:52)
[2018-04-02] MEDS ORDERED: Acetaminophen 500 MG TAB ONE (22:39)
== END 2018-04-02 19:30 | disposition home or self-care (01) ==
LOC: ERS 16:32
DX: N39.0 Urinary tract infection, site not specified (principal); I10 Essential (primary) hypertension; E11.9 Type 2 diabetes mellitus without complications; Z79.4 Long term (current) use of insulin; Z79.899 Other long term (current) drug therapy
CPT/HCPCS: 36415; 36416; 70450; 71045; 80053; 81003; 81015; 82550; 82553; 83690; 84484; 85025; 87077; 87086; 87186; 93005; 96372; J0696; J2001